=== PATIENT | female | born 1985 | race Caucasian/White ===

== ENCOUNTER 2022-04-21 18:11 | Emergency (ER) | payer MEDICAID, SELFPAY ==
[2022-04-21 18:25] VITALS: BP 125/79; PULSE 61; RESP 18; TEMP 36.3; O2SAT 98; BMI 43.4
--- OUTSIDE RECORDS SUMMARY | 2022-04-21 20:21 | XMS_ITS | Encounter Summary ---
:1985 Author Organization [place] Address [address] [facility] [place] [address] Care Team Providers Name Role Phone Joce Justin MD Primary Care Provider Reason for Visit Auth/Cert Specialty Diagnoses / Procedures Referred By Contact Refer red To Contact Surgery Diagnoses right carpal tunnel syndrome Sh Periop Services Procedures RELEASE CARPAL TUNNEL [address], [address] [place] [address] Phone: Referral ID Status Reason Start Date Expiration Date Visits Requ ested Visits Authorized [id number] 1 1 Encounter Details Date Type Department Care Team Description 09/17/2017 Anesthesia Event [facility] Gideon Franco [place] PeriGuy MD [address], [address] [address] [place] [address] [phone] (Wo rk) Anesthesia Record Procedure Summary Procedure Name Responsible Anesthesia Start Anesthesia Stop Time Anesthesiologist Time OPEN RIGHT CARPAL Gideon Franco MD 09/17/17 1336 1423 TUNNEL RELEASE (Right: Wrist) Events Date Time Event Comment 09/17/2017 1159 1336 An Start 1336 An Start Data 1339 An Induction 1341 An LMA 1342 LMA Removed 1342 Quick Note LMA supreme inse rted with a good seal, patient started to hiccu p and gastric contents came through the gastric port on LMA, LMA immediately removed. Dr. Franco DL'd patient with lai 2, cords suctioned and we re clear. RSI induction with cricoid pressure and glidescope 3 used with grade [address] aced with ease. Suctioned down ETT tube and there w as no gastric contents down the ETT. 1344 An Intubation 1346 AN START SEVO 1353 An Tourn Inflated 1353 AN INCISION 1406 AN END SEVO 1414 AN Extubation 1417 an stop data 1423 An Stop Electronically s igned by Kenyetta Ram on September 17, 2017 2 :23 PM Name Total dexamethasone 4mg/mL 4 mg fentaNYL (SUBLIMAZE) injection 100 mcg lidocaine 2% 60 mg midazolam 1mg/mL 2 mg ondansetron 2mg/mL 4 mg propofol (DIPRIVAN) injection 10 mg/mL vial 300 mg propofol infusion (mcg/kg/min) 250.92 mg ceFAZolin (ANCEF) intermittent infusion 3 g (pre-mix) 3 g succinylcholine 20 mg/mL 100 mg LR 600 mL Agents Name NO HELIOX O2 N2O Air Exp Sevoflurane Exp Isoflurane Exp Desflurane Exp N2O O2 Delivery Device Ins Sevoflurane Ins Isoflurane Ins Desflurane O2 Auxiliary Blood No blood administrations on file. Lines, Drains, and Airways Type Details Placement Removal Peripheral IV 09/17/17; 1339; 20 G; 09/17/17 1339 by Left; Hand; Metacarpal Kenyetta Ram vein (top of hand); VIKI Strickland DEDICATED LOCAL TRUCK DRIVER Alcohol; Injectable; Tolerated well Incision/Surgical Site 09/17/17; 1402; Right; 09/17/17 1402 by Wrist Anna Mckeon RN Retired Non-Surgical 09/17/17; 1341; Not 09/17/17 1341 by 1342 by Airway attempted ([place] Kenyetta Ram Theresa Airway); Intravenous; VIKI Strickland CRNA, AP RN DEDICATED LOCAL TRUCK DRIVER Easy; 4; mm; laryngeal mask airway; midline; SRNA; ab RETIRED ETT 09/17/17; 1344; Mask 09/17/17 1344 by 09/17/17 1 414 by Ventilation: Not Kenyetta Ram T heresa attempted (RSI); Ease VIKI Strickland CRNA, AP RN DEDICATED LOCAL TRUCK DRIVER of Intubation: Easy; Airway Size: 7; Cuffed; Oral; Blade Type: Glidescope; Blade Size: 3; Place by: izaiah; Insertion Attempts: 1; Secured at (cm)to lip: 21 cm; Breath Sounds: Equal, clear and bilateral; End Tidal CO2: Present; Dentition: Intact, Unchanged; Grade View of Cords: 1; Airway Adjuncts: [place] scope Gastric Tube 09/17/17; 1345; 09/17/17 1345 by 09/17/17 1346 b y Decompression; 18 fr; Yo, Kenyetta Sundstr om, Kenyetta Aspiration of gastric Marco A, KIT ASSEMBLER DEDICATED LOCAL TRUCK DRIVER Marco A, AP RN DEDICATED LOCAL TRUCK DRIVER content documented in this encounter Social History Tobacco Use Types Packs/Day Years Used Date Smoking Tobacco: Some Days Cigarettes 0.5 Smokeless Tobacco: Never Alcohol Use Standard Drinks/Week Comments Yes 0 (1 standard drink = 0.6 oz pure alcoho l) occasionally Sex Assigned at Date Recorded Not on file documented as of this encounter OR Notes Anesthesia Postprocedure Evaluation - Gideon Franco MD - 09/17/2017 3:21 PM CDT Patient: Phuong Hood Procedure(s): OPEN RIGHT CARPAL TUNNEL RELEASE - Wound Class: I-Clean Diagnosis:right carpal tunnel syndrome Diagnosis Additional Information: No value filed. Anesthesia Type: General, LMA Note: Anesthesia Post Evaluation Patient location during evaluation: PACU Patient participation: Able to fully participate in evaluation Level of consciousness: awake Pain management: adequate Airway patency: patent Cardiovascular status: acceptable Respiratory status: acceptable Hydration status: acceptable PONV: none Anesthetic complications: None Last vitals: Vitals: 09/17/17 1445 09/17/17 1500 09/17/17 1515 BP: 156/64 141/70 149/79 Resp: 15 21 15 Temp: 36.8 ??C (98.2 ??F) 36.6 ??C (97.9 ??F) SpO2: 99% 99% 93% Electronically Signed By: Gideon Franco MD September 17, 2017 3:21 PM Anesthesia Preprocedure Evaluation - Gideon Franco MD - 09/17/2017 11:13 AM CDT Anesthesia Evaluation . Pt has had prior anesthetic. No history of anesthetic complications ROS/MED HX ENT/Pulmonary: (+), recent URI resolved 6 months ago has used albuterol inhaler occ. since: . . Neurologic: Cardiovascular: METS/Exercise Tolerance: Hematologic: Musculoskeletal: GI/Hepatic: Renal/Genitourinary: Endo: (+) Obesity (BMI 42), . Psychiatric: (+) psychiatric history (PTSD;) anxiety and depression Infectious Disease: Malignancy: Other: Physical Exam Normal systems: cardiovascular and pulmonary Airway Mallampati: III TM distance: >3 FB Neck ROM: full Dental Cardiovascular Pulmonary Anesthesia Plan History & Physical Review History and physical reviewed and following examination; no interval change. ASA Status: 3 . NPO Status: > 8 hours Plan for General and LMA with Intravenous and Propofol induction. Maintenance will be Inhalation. PONV prophylaxis: Ondansetron (or other 5HT-3) and Dexamethasone or Solumedrol LMA with gastric port Patient refuses any other anesthetic alternative and demands general anesthesia Postoperative Care Postoperative pain management: Oral pain medications. Consents Anesthetic plan, risks, benefits and alternatives discussed with: Patient.. DPreop diagnosis: right carpal tunnel syndrome Procedure(s): RELEASE CARPAL TUNNEL Allergies Allergen Reactions ??? Estradiol Other (See Comments) ALLERGY TO ORTH TRI CYCLEN - REACTION: ??? Hydrocodone Nausea ??? Ciprofloxacin Rash No current facility-administered medications on file prior to encounter. No current outpatient prescriptions on file prior to encounter. No results found for: HGB, INR, POTASSIUM . documented in this encounter Miscellaneous Notes Anesthesia Care Transfer Note - Kenyetta Ram APRN CRNA - 09/17/2017 2:22 PM CDT Patient: Phuong Hood Procedure(s): OPEN RIGHT CARPAL TUNNEL RELEASE - Wound Class: I-Clean Diagnosis: right carpal tunnel syndrome Diagnosis Additional Information: No value filed. Anesthesia Type: General, LMA Note: Airway :Face Mask Patient transferred to:PACU Comments: Neuromuscular blockade reversed after TOF 4/4, spontaneous respirations, adequate tidal volumes, followed commands to voice, oropharynx suctioned with soft flexible catheter, extubated atraumatically, extubated with suction, airway patent after extubation. Oxygen via facemask at 8 liters per minute to PACU. Oxygen tubing connected to wall O2 in PACU, SpO2, NiBP, and EKG monitors and alarms on and functioning, Genaro Hugger warmer connected to patient gown, report on patient's clinical statusgiven to CANDY FORMING MACHINE OPERATOR, RN questions answered. Handoff Report: Identifed the Patient, Identified the Reponsible Provider, Reviewed the pertinent medical history, Discussed the surgical course, Reviewed Intra-OP anesthesia mangement and issues during anesthesia, Set expectations for post-procedure period andAllowed opportunity for questions and acknowledgement of understanding Vitals: (Last set prior to Anesthesia Care Transfer) DEDICATED LOCAL TRUCK DRIVER VITALS 09/17/2017 1347 - 09/17/2017 1422 09/17/2017 Pulse: 86 SpO2: 100 % Resp Rate (observed): 14 Electronically Signed By: Kenyetta Ram APRN CRNA September 17, 2017 2:22 PM documented in this encounter Plan of Treatment Not on filedocumented as of this encounter Visit Diagnoses Not on filedocumented in this encounter Administered Medications Inactive Administered Medications - up to 3 most recent administrations Medication Order MAR Action Action Date Dose Rate Site ceFAZolin (ANCEF) intermittent Given 09/17/2017 1:47 PM CDT 3 g infusion 3 g (pre-mix) Routine, 3 g, Intravenous, PRE-OP/PRE-PROCEDURE, Starting on Stacey 09/17/17 at 1105, For 1 dose, USE 3 gram dose pre-op (Patient weight > or = 80 Kg). Discontinue the 1 or 2 gram pre-procedure dose, Indications: Perioperative Pharmacoprophylaxis, Pre-procedure dexamethasone (DECADRON) injection Given 09/17/2017 1:47 PM CDT 4 mg PRN, Administer over 1 Minutes, Starting on Stacey 09/17/17 at 1347, Anesthesia Intra-op fentaNYL (PF) (SUBLIMAZE) injection Given 09/17/2017 2:15 PM CDT 25 mcg PRN, moderate to severe pain, Administer over 3-5 Minutes, Starting on Stacey 09/17/17 at 1339, Anesthesia Intra-op Given 09/17/2017 2:08 PM CDT 25 mcg Given 09/17/2017 1:39 PM CDT 50 mcg lactated ringers infusion New Bag 09/17/2017 1:39 PM CDT Intravenous, CONTINUOUS PRN, Anesthesia Intra-op, Starting on Stacey 09/17/17 at 1339, Until Stacey 09/17/17 at 1423 lidocaine injection 2% (MDV) Given 09/17/2017 1:39 PM CDT 60 mg PRN, Starting on Stacey 09/17/17 at 1339, Anesthesia Intra-op midazolam (VERSED) injection Given 09/17/2017 1:39 PM CDT 2 mg Administer over 2 Minutes, PRN, anxiety, Starting on Stacey 09/17/17 at 1339, Anesthesia Intra-op ondansetron (ZOFRAN) injection Given 09/17/2017 1:47 PM CDT 4 mg PRN, nausea, vomiting, Administer over 2-5 Minutes, Starting on Stacey 09/17/17 at 1347, Anesthesia Intra-op propofol (DIPRIVAN) infusion Rate/Dose 09/17/2017 1:53 25 mcg/kg/min 18.5 mL/hr Intravenous, CONTINUOUS PRN, Change PM CDT Starting on Stacey 09/17/17 at 1339, Anesthesia Intra-op Rate/Dose Change 09/17/2017 1:47 PM CDT 50 mcg/kg/min 36.9 mL/hr New Bag 09/17/2017 1:39 PM CDT 180 mcg/kg/min 132.8 mL/hr propofol (DIPRIVAN) injection 10 mg/mL v ial Given 09/17/2017 1:39 PM CDT 300 mg PRN, Starting on Stacey 09/17/17 at 1339, Anesthesia Intra-op succinylcholine (ANECTINE) injection Given 09/17/2017 1:43 PM CDT 100 mg PRN, Starting on Stacey 09/17/17 at 1343, Anesthesia Intra-op documented in this encounter Care Teams Machine Feeder Relationship Specialty Start Date End Date Joce Justin MD PCP - General Family Practice 09/08/17 [facility] [address] [place] [address] documented as of this encounter
--- OUTSIDE RECORDS SUMMARY | 2022-04-21 20:21 | XMS_ITS | Encounter Summary ---
:1985 Author Organization [place] Address [facility] [place] [address] Care Team Providers Name Role Phone Jared Justin MD Primary Care Provider Reason for Visit Auth/Cert Specialty Diagnoses / Procedures Referred By Contact Refer red To Contact Surgery Diagnoses right carpal tunnel syndrome Sh Periop Services Procedures RELEASE CARPAL TUNNEL [address] [place] [address] Phone: Referral ID Status Reason Start Date Expiration Date Visits Requ ested Visits Authorized [id number] 1 1 Encounter Details Date Type Department Care Team Description 09/17/2017 Surgery [facility] Jared Ponce MD OPEN RIGHT CARPAL TUNNEL [place] [facility] RELEASE Services ORTHOPEDICS [address] [facility] [address] [place] [address] [place] [address] [phone] Surgery Details Date/Time Status Location OR Service Patient Case Case Traum a Class Class Type Case? 09/17/17 2:03 Posted Z SH SD SD 20 Orthopedics Same Day PM Surgery Panel 1 Procedure LRB Anes Op Region Wound Class Commen ts OPEN RIGHT CARPAL TUNNEL Right Winter Block Wrist I-Clean OPEN RIGHT CARPAL RELEASE TUNNEL RELEASE Surgeon Surgeon Role Service Panel Jared Ponce MD Primary Orthopedics 1 documented in this encounter Social History Tobacco Use Types Packs/Day Years Used Date Smoking Tobacco: Some Days Cigarettes 0.5 Smokeless Tobacco: Never Alcohol Use Standard Drinks/Week Comments Yes 0 (1 standard drink = 0.6 oz pure alcoho l) occasionally Sex Assigned at Date Recorded Not on file documented as of this encounter Last Filed Vital Signs Vital Sign Reading Time Taken Comments Blood Pressure 123/76 09/17/2017 4:39 PM CDT Pulse - - Temperature 36.6 ??C (97.9 ??F) 09/17/2017 3:45 PM CDT Respiratory Rate 16 09/17/2017 4:39 PM CDT Oxygen Saturation 93% 09/17/2017 3:45 PM CDT Inhaled Oxygen Concentration - - Weight 123 kg (271 lb 1.6 oz) 09/17/2017 11:05 AM CDT Height 160 cm (5' 3) 09/17/2017 11:05 AM CDT Body Mass Index 48.02 09/17/2017 11:05 AM CDT documented in this encounter Discharge Instructions Discharge InstructionsCarolina Bender RN - 09/17/2017 3:06 PM CDT Today you received Toradol, an antiinflammatory medication similar to Ibuprofen. You should not takeother antiinflammatory medication, such as Ibuprofen, Motrin, Advil, Aleve, Naprosyn, etc, until 9pm. Same Day Surgery Discharge Instructions for Sedation and General Anesthesia ?? It's not unusual to feel dizzy, light-headed or faint for up to 24 hours after surgery or while taking pain medication. If you have these symptoms: sit for a few minutes before standing and have someone assist you when you get up to walk or use the bathroom. ?? You should rest and relax for the next 24 hours. We recommend you make arrangements to have an adult stay with you for at least 24 hours after your discharge. Avoid hazardous and strenuous activity. ?? DO NOT DRIVE any vehicle or operate mechanical equipment for 24 hours following the end of your surgery. Even though you may feel normal, your reactions may be affected by the medication you have received. ?? Do not drink alcoholic beverages for 24 hours following surgery. ?? Slowly progress to your regular diet as you feel able. It's not unusual to feel nauseated and/or vomit after receiving anesthesia. If you develop these symptoms, drink clear liquids (apple juice, bang coy, broth, 7-up, etc. ) until you feel better. If your nausea and vomiting persists for 24 hours, please notify your surgeon. ?? All narcotic pain medications, along with inactivity and anesthesia, can cause constipation. Drinking plenty of liquids and increasing fiber intake will help. ?? For any questions of a medical nature, call your surgeon. ?? Do not make important decisions for 24 hours. ?? If you had general anesthesia, you may have a sore throat for a couple of days related to the breathing tube used during surgery. You may use Cepacol lozenges to help with this discomfort. If it worsens or if you develop a fever, contact your surgeon. ?? If you feel your pain is not well managed with the pain medications prescribed by your surgeon, please contact your surgeon's office to let them know so they can address your concerns. Reasons to contact your surgeon: 1. Signs of possible infection: Check your incision daily for redness, swelling, warmth, red streaksor foul drainage. 2. Elevated temperature. 3. Pain not controlled with pain medication and/or rest. 4. Uncontrolled nausea or vomiting. 5. Any questions or concerns. If you have questions or concerns about your procedure, call Dr. Ponce at [phone] documented in this encounter Medications at Time of Discharge Medication Sig Dispensed Refills Start Date End Date albuterol (PROAIR Inhale 2 puffs into 0 HFA/PROVENTIL HFA/VENTOLIN the lungs every 4 HFA) 108 (90 BASE) MCG/ACT hours as needed for Inhaler shortness of breath / dyspnea or wheezing BusPIRone HCl (BUSPAR PO) Take 7.5 mg by mouth 0 2 times daily HYDROcodone-acetaminophen Take 1-2 tablets by 10 tablet 0 0 09/17/2017 (NORCO) 5-325 MG per mouth every 4 hours tabletIndications: Carpal as needed for pain tunnel syndrome of right maximum 10 tablet(s) wrist per day Levothyroxine Sodium Take 75 mcg by mouth 0 (SYNTHROID PO) daily Omeprazole (PRILOSEC PO) Take 20 mg by mouth 0 daily oxyCODONE-acetaminophen Take 1-2 tablets by 10 tablet 0 (PERCOCET) 5-325 MG per mouth every 6 hours tabletIndications: Carpal as needed for severe tunnel syndrome of right pain maximum 6 wrist tablet(s) per day venlafaxine (EFFEXOR-XR) Take 225 mg by mouth 0 150 MG 24 hr capsule daily documented as of this encounter H&P Notes Jared Ponce MD - 09/17/2017 1:31 PM CDT This H&P has been reviewed and there are no clinically significant changes in the patient? s condition. The Patient is approved for surgery. documented in this encounter Nursing Notes Carolina Bender RN - 09/17/2017 3:59 PM CDT PNDS met, po per I&O sheet. Pt dressed, up in recliner and transported to Phase 2. Carolina Bender RN - 09/17/2017 3:37 PM CDT Patient states she is allergic to norco, wants percocet documented in this encounter Miscellaneous Notes Brief Op Note - Jared Ponce MD - 09/17/2017 2:07 PM CDT [facility] Brief Operative Note Pre-operative diagnosis: Right carpal tunnel syndrome Post-operative diagnosis Right carpal tunnel syndrome Procedure: Procedure(s): OPEN RIGHT CARPAL TUNNEL RELEASE - Wound Class: I-Clean Surgeon(s): Surgeon(s) and Role: * Jared Ponce MD - Primary Estimated blood loss: * No values recorded between 09/17/2017 1:53 PM and 09/17/2017 2:07 PM * Specimens: * No specimens in log * Findings: Tight transverse ligament. Op Note - Jared Ponce MD - 09/17/2017 2:06 PM CDT Procedure Date: 09/17/2017 DATE OF SURGERY: 09/17/2017 PREOPERATIVE DIAGNOSIS: Chronic right carpal tunnel syndrome. POSTOPERATIVE DIAGNOSIS: Chronic right carpal tunnel syndrome. OPERATIVE PROCEDURE: Open right carpal tunnel release. SURGEON: Jared Ponce MD. STATE EPIDEMIOLOGIST: SARWAT Teixeira. ANESTHESIA: General. OPERATIVE PROCEDURE: I identified the patient. She was brought into the operating room and placed onthe OR table where general anesthesia was induced by the anesthesiologist. She received preoperativeIV antibiotics. A well-padded tourniquet was then applied to the right upper extremity. The arm was prepped and draped in the standard fashion. It was exsanguinated by Esmarch and tourniquet elevated to 300 mmHg. A standard 1-inch longitudinal incision was made in the right palm in line with the radial border ofthe fourth ray. This was taken down through the underlying palmar fascia so as to expose the transverse carpal ligament. A curved Reid scissors was then used to free soft tissue off the proximal ligament and distal antebrachial fascia to further improve exposure. A curved mosquito was then placed under the distal portion of the transverse ligament. The ligament was then incised in a distal to proximal fashion with a 15 blade. The most proximal ligament and distal antebrachial fascia were then released under direct vision with a curved Reid scissors. A moistened finger introduced into the wound confirmed that the nerve had been completely decompressed. The nerve itself, including the motor branch, was unharmed by the procedure. No abnormal contentsin the floor of the carpal tunnel. The wound was then irrigated with saline. Skin was closed with interrupted 4-0 nylon. The wound was infiltrated with 0.5% Marcaine for postoperative analgesia. A sterile bulky dressing was then applied along with a volar plaster splint. The tourniquet was deflated, and the patient was taken to the recovery room having tolerated the surgery well. JARED POCNE MD MT: AV Name: HOLLAND GARZA MRN: [id number] Account: [id number] : 1985 Procedure Date: 09/17/2017 Document: [id number] cc: Jared Ponce MD documented in this encounter Plan of Treatment Not on filedocumented as of this encounter Procedures Procedure Name Priority Date/Time Associated Diagnosis Comme nts RELEASE, CARPAL TUNNEL 09/17/2017 1:16 PM CDT Right ca rpal tunnel syndrome documented in this encounter Visit Diagnoses Not on filedocumented in this encounter Administered Medications Inactive Administered Medications - up to 3 most recent administrations Medication Order MAR Action Action Date Dose Rate Site bupivacaine (MARCAINE) Given 09/17/2017 2:09 PM 10 mLs Operative injection 0.5% CDT Site/Surgical S ite PRN, Starting on Stacey 09/17/17 at 1409, Intra-procedure fentaNYL (PF) (SUBLIMAZE) injection 25-5 0 mcg Given 09/17/2017 2:43 PM CDT 50 mcg 25-50 mcg, Intravenous, EVERY 5 MIN PRN, other, acute pain while in PACU., Starting on Stacey 09/17/17 at 1423, MAX cumulative dose = 250 mcg. Use Fentanyl initially, as a short acting agent for acute pain control. If insufficient, or a longer acting agent is needed, begin Morphine or Hydromorphone if ordered. For ordered doses up to 100 mcg give IV Push undiluted over a minimum of 3-5 minutes., PACU Given 09/17/2017 2:27 PM CDT 50 mcg fentaNYL (PF) (SUBLIMAZE) injection 25-5 0 mcg 25-50 mcg, Intravenous, EVERY 15 MIN PRN, other, acute pain while in Phase II, Starting on Stacey 09/17/17 at 1423, Indicat ions: Sedated State, MAX cumulative dose = 250 mcg. Use Fentanyl initially, as a sh ort acting agent for acute pain control. If insufficient, or a longer acting agent i s needed, begin Morphine or Hydromorphone if ordered. For ordered doses up to 100 mcg give IV Push undiluted over a minimum of 3-5 minutes., Phase ll HYDROmorphone (PF) (DILAUDID) injection Given 09/17/2017 3:28 PM CDT 0.5 mg 0.3-0.5 mg 0.3-0.5 mg, Intravenous, EVERY 10 MIN PRN, other, acute pain.?May administer if Respiratory Rate is greater than 10, Starting on Stacey 09/17/17 at 1423, If fentanyl is also ordered, use HYDROmorphone if pain control insufficient with fentanyl or a longer acting agent is needed. Max cumulative dose = 2 mg For ordered doses up to 4 mg give IV Push undiluted. Administer each 2mg over 2-5 minutes., PACU/Phase II ketorolac (TORADOL) injection 30 mg Given 09/17/2017 3:02 PM CDT 30 mg 30 mg, Intravenous, ONCE, On Stacey 18 at 1430, For 1 dose, IF celecoxib was given pre-operatively, start ketorolac 12 hours after celecoxib given No ketorolac if patient is greater than 65 years old. May give only if patient did not receive a dose intraoperatively. Can cause pain on injection. Administer through a running maintenance fluid over 1 minute followed by a flush. If patient complains of pain on injection, may dilute 15-30 mg in 5 mL and push over 1 to 2 minutes. , PACU/Phase II lactated ringers infusion New Bag 09/17/2017 3:32 PM CDT 100 mL/hr at 100 mL/hr, Intravenous, CONTINUOUS, Continue until IV catheter is weaned, PACU/Phase II, Starting on Stacey 09/17/17 at 1430, Until Stacey 09/17/17 at 1845 meperidine (DEMEROL) injection 12.5 mg 12.5 mg, Intravenous, EVERY 15 MIN PRN, post anesthesia shivering, Starting on Stacey 09/17/17 at 1423, For 2 doses, Give IV Pu sh undiluted. 10-40 mg over 2-3 minutes, up to 125 mg over 3-15 minutes, PACU/Phase II midazolam (VERSED) injection 0.5-1 mg 0.5-1 mg, Intravenous, EVERY 5 MIN PRN, muscle spasms, sedation, Starting on Stacey 09/17/17 at 1423, Max cumulative dose = 2 mg For ordered doses up to 2.5 mg give IV Push slowly titrated over a minimum of 2 minutes. Dilute each 1mg in 4mL of NS., PACU naloxone (NARCAN) injection 0.1-0.4 mg 0.1-0.4 mg, Intravenous, EVERY 2 MIN PRN , opioid reversal, Starting on Stacey 09/17/17 at 1423, For 24 hours, For apnea or imminent respirato ry arrest: give 0.4 mg IV undiluted Q 2 minutes PRN until desired degree of reversal is obtained, stop opioid and notify provider. Continue monitoring until dischar ge are criteria met for a minimum of 2 hours. For severe sedation, decrease in respiratory depth, quality or Respiratory Rate greater than 8: give 0. 1 mg IV Q 2 minutes x 3 doses, stop opioid and notify provider. Try to minimize reversal of analg esia especially in end-of-life patients. Continue monitorin g until discharge criteria are met for a minimum of 2 hours. For ordered doses up to 2mg give IVP. Give each 0.4mg over 15 seconds in emergency situations. For non -emergent situations further dilute in 9mL of NS to facilitate titration of response., PACU/Phase II ondansetron (ZOFRAN) injection 4 mg 4 mg, Intravenous, EVERY 30 MIN PRN, donna sea, vomiting, Administer over 2-5 Minutes, Starting on Stacey 09/17/17 at 1423, For 2 d oses, MAX total dose = 8 mg, including OR dosing. This is step 1 of nausea and vomiting manageme nt. If not resolved in 15 minutes, then go to step 2 [prochlorpera zine (COMPAZINE) if ordered]. Irritant. For ordered doses up to 4 mg, give IV Push u ndiluted over 2-5 minutes., PACU/Phase II ondansetron (ZOFRAN-ODT) ODT tab 4 mg 4 mg, Oral, EVERY 30 MIN PRN, nausea, vo miting, Starting on Stacey 09/17/17 at 1423, For 2 doses, MAX total dose = 8 mg, incl uding OR dosing. This is step 1 of nausea and vomiting management. If not resolved in 15 minutes , then go to step 2 [prochlorperazine (COMPAZINE) if ordered ]. With dry hands, peel back foil backing and gently remove tablet; do not push oral disintegrat ing tablet through foil backing; administer immediately on tongu e and oral disintegrating tablet dissolves in seconds; then swallow with saliva; liquid not requi red., PACU/Phase II ORAL Pain Medications - may administer a s ordered by surgeon for take home use CONTINUOUS PRN, Starting on Stacey 09/17/17 at 1423, Until Stacey 09/17/17 at 1845, May administer oral pain medications as ordered by surgeon for take home use. Discontinue IV pain medication prior to administration of oral pain medication., PACU/Phase II oxyCODONE-acetaminophen (PERCOCET) 5-325 MG Given 08/28 4:28 PM CDT 1 tablet per tablet 1 tablet 1 tablet, Oral, EVERY 4 HOURS PRN, moderate to severe pain, Starting on Stacey 09/17/17 at 1628, Maximum acetaminophen dose from all sources= 75 mg/kg/day not to exceed 4 grams, PACU physostigmine salicylate (ANTILIRIUM) in jection 1.2 mg 1.2 mg, Intravenous, ONCE PRN, for non-specific revers al of ICT PROGRAMMER anticholinergic side effects, Starting on Stacey 09/17/17 at 1423, For 1 dose, Infuse no faster than 1 mg per minute. Rapid administration may cause bradycardia, excessive salivation and seizures., PACU/Phase II documented in this encounter Active and Recently Administered Medications Times are shown in CDT. Scheduled Medication Order 09/15/2017 09/16/2017 09/17/2017 ceFAZolin (ANCEF) intermittent infusion 3 g (pre-mix) (COMPLETED ) 1347 (Given - Provider: Kenyetta Ram APRN CRNA) 3 g, Intravenous, PRE-OP/PRE-PROCEDURE, Starting Stacey 09/17/17 at 1105, For 1 dose, USE 3 gram dose pre-op (Patient weight > or = 80 Kg). Discontinue the 1 or 2 gram pre-procedure dose, Indications: Perioperative Pharmacoprophylaxis, Pre-procedure ketorolac (TORADOL) injection 30 mg (COMPLETED) 1502 (Given - Provider: Carolina Bender RN) 30 mg, Intravenous, ONCE, On Stacey 09/17/17 at 1430, For 1 dose, IF celecoxib was given pre-operatively, start ketorolac 12 hours after celecoxib given No ketorolac if patient is greater than 65 years old. May give only if patient did not receiv e a dose intraoperatively. Can cause pain on injection. Administer through a running maintenance fluid over 1 minute followed by a flush. If patient complains of pain on injection, may dilute 15-30 mg i n 5 mL and push over 1 to 2 minutes. , PACU/Phase II Continuous Medication Order 09/15/2017 09/16/2017 09/17/2017 lactated ringers infusion 1532 ( New Bag - Provider: Adriana Monroe RN) at 100 mL/hr, Intravenous, CONTINUOUS, C ontinue until IV catheter is weaned, PACU/Phase II, Starting Stacey 09/17/17 at 1430, Until Stacey 09/17/17 at 1845 PRN Medication Order 09/15/2017 09/16/2017 09/17/2017 bupivacaine (MARCAINE) injection 0.5% (CANCELED) 1409 (Given - Provider: Jared Ponce MD) PRN, Starting Stacey 09/17/17 at 1409, Intra-procedure fentaNYL (PF) (SUBLIMAZE) injection 25-50 mcg 1427 (Given - Provider: Carolina Bender, YAMILE)1443 (Given - Provider: Carolina Bender RN) 25-50 mcg, Intravenous, EVERY 5 MIN PRN, Starting Stacey 09/17/17 at 1423, other, acute pain while in PACU., MAX cumulative dose = 250 mcg. Use Fentanyl initially, as a short acting agent for acute pain con trol. If insufficient, or a longer actin g agent is needed, begin Morphine or Hydromorphone if ordered. For ordered doses up to 100 mcg give IV Push undiluted over a minimum of 3-5 minutes., PACU fentaNYL (PF) (SUBLIMAZE) injection 25-50 mcg 25-50 mcg, Intravenous, EVERY 15 MIN PRN , Starting Stacey 09/17/17 at 1423, other, acute pain while in Phase II, MAX cumulative dose = 250 mcg. Use Fentanyl initially, as a short acting agent for acute pain control. If insufficient, or a longer a cting agent is needed, begin Morphine or Hydromorphone if ordered. For ordered doses up to 100 mcg give IV Push undiluted over a minimum of 3-5 minutes., Phase ll HYDROmorphone (PF) (DILAUDID) injection 0.3-0.5 mg 1528 (Given - Provider: Adriana Monroe RN) 0.3-0.5 mg, Intravenous, EVERY 10 MIN NJ N, Starting Stacey 09/17/17 at 1423, Until Stacey 09/17/17 at 1845, other, acute pain.?May administer if Respiratory Rate is greater than 10, PACU/Phase II, If fentany l is also ordered, use HYDROmorphone if pain control insufficient with fentanyl or a longer acting agent is needed. Max cumulative dose = 2 mg For ordered doses up to 4 mg give IV Push undiluted. Administer each 2mg over 2-5 minutes. meperidine (DEMEROL) injection 12.5 mg 12.5 mg, Intravenous, EVERY 15 MIN PRN, 2 doses, Starting Stacey 318 at 1423, Until Stacey 3/18 at 1845, post anesthesia shivering, PACU/Phase II, Give IV Push undiluted. 10-40 mg over 2-3 minutes, up to 125 mg over 3-15 minutes midazolam (VERSED) injection 0.5-1 mg 0.5-1 mg, Intravenous, EVERY 5 MIN PRN, Starting Stacey 318 at 1423, muscle spasms, sedation, Max cumulative dose = 2 mg For ordered doses up to 2.5 mg give IV Push slowly titrated over a minimum of 2 minutes. Dilute each 1mg in 4mL of NS., PACU naloxone (NARCAN) injection 0.1-0.4 mg 0.1-0.4 mg, Intravenous, EVERY 2 MIN PRN , opioid reversal, Starting Stacey 09/17/17 at 1423, For 24 hours, For apnea or imminent respiratory arrest: give 0.4 mg IV undiluted Q 2 minutes PRN until desired de gree of reversal is obtained, stop opioi d and notify provider. Continue monitoring until discharge are criteria met for a minimum of 2 hours. For severe sedation, decrease in respiratory depth, quality or Respiratory Rate greater than 8: give 0.1 mg IV Q 2 minutes x 3 doses, stop opioid and notify provider. Try to minimize reversal of analgesia especially in end-of-life patients. Continue monitoring u ntil discharge criteria are met for a mi nimum of 2 hours. For ordered doses up to 2mg give IVP. Give each 0.4mg over 15 seconds in emergency situations. For non-emergent situations further dilute in 9mL of NS to facilitate titration of response., PACU/Phase II ondansetron (ZOFRAN) injection 4 mg(Linked Group 1) 4 mg, Intravenous, EVERY 30 MIN PRN, donna sea, vomiting, Administer over 2-5 Minutes, Starting Stacey 318 at 1423, For 2 doses, MAX total dose = 8 mg, including OR dosing. This is step 1 of nausea and vo miting management. If not resolved in 15 minutes, then go to step 2 [prochlorperazine (COMPAZINE) if ordered]. Irritant. For ordered doses up to 4 mg, give IV Push undiluted over 2-5 minutes., PACU/Phase II ondansetron (ZOFRAN-ODT) ODT tab 4 mg(Linked Group 1) 4 mg, Oral, EVERY 30 MIN PRN, nausea, vo miting, Starting Stacey 09/17/17 at 1423, For 2 doses, MAX total dose = 8 mg, including OR dosing. This is step 1 of nausea and vomiting management. If not resolved i n 15 minutes, then go to step 2 [prochlo rperazine (COMPAZINE) if ordered]. With dry hands, peel back foil backing and gently remove tablet; do not push oral disintegrating tablet through foil backing; a dminister immediately on tongue and oral disintegrating tablet dissolves in seconds; then swallow with saliva; liquid not required., PACU/Phase II ORAL Pain Medications - may administer as ordered by surgeon for take home use CONTINUOUS PRN, Starting Stacey 09/17/17 at 1423, Until Stacey 09/17/17 at 1845, May administer oral pain medications as ordered by surgeon for take home use. Discontinue IV pain medication prior to administration of oral pain medication., PACU/Phase II oxyCODONE-acetaminophen (PERCOCET) 5-325 MG per tablet 1 tablet 1628 (Given - Provider: Licha Lester RN) 1 tablet, Oral, EVERY 4 HOURS PRN, moder ate to severe pain, Starting Stacey 09/17/17 at 1628, Maximum acetaminophen dose from all sources= 75 mg/kg/day not to exceed 4 grams, PACU physostigmine salicylate (ANTILIRIUM) injection 1.2 mg 1.2 mg, Intravenous, ONCE PRN, for non-s pecific reversal of ICT PROGRAMMER anticholinergic side effects, Starting Stacey 09/17/17 at 1423, For 1 dose, Infuse no faster than 1 mg per minute. Rapid administration may ca use bradycardia, excessive salivation and seizures., PACU/Phase II Linked Groups Order Group 1: ondansetron (ZOFRAN-ODT) ODT tab 4 mgJump to med 4 mg, Oral, EVERY 30 MIN PRN, nausea, vo miting, Starting Stacey 09/17/17 at 1423, For 2 doses
MAX total dose = 8 mg, including OR dosing. This is step 1 of nausea and vomiting management. If not resolved in 15 minutes, the n go to step 2 [prochlorperazine (COMPAZINE) if ordered]. With dry hands, peel back foil backing and gently remove tablet; do not push oral disintegr ating tablet through foil backing; admin ister immediately on tongue and oral disintegrating tablet dissolves in seconds; then swallow with saliva; liquid not required.
PACU/Phase II Or ondansetron (ZOFRAN) injection 4 mgJump to med 4 mg, Intravenous, EVERY 30 MIN PRN, donna sea, vomiting, Administer over 2-5 Minutes, Starting Stacey 09/17/17 at 1423, For 2 doses
MAX total dose = 8 mg, including OR dosing. This is step 1 of nause a and vomiting management. If not resolved in 15 minutes, then go to step 2 [prochlorperazine (COMPAZINE) if ordered]. Irritant. For ordered doses up to 4 mg, give IV Push undiluted over 2-5 minutes.
PACU/Phase II documented in this encounter Care Teams Manager Payment Relationship Specialty Start Date End Date Jared Justin MD PCP - General Family Practice 09/08/[address] [address] documented as of this encounter
--- OUTSIDE RECORDS SUMMARY | 2022-04-21 20:21 | XMS_ITS | Clinical Summary ---
:1985 Author Organization [place] Address [address] [place] [address] Care Team Providers Name Role Phone Joce Justin MD Primary Care Provider Allergies Active Allergy Reactions Severity Noted Date Comments Ciprofloxacin Rash Low 09/16/2017 Estradiol Other (See Comments) 09/16/2017 ALLERGY TO ORTH TRI CYCLEN - REACTION:PREGNA NCY Hydrocodone Nausea 09/16/2017 Medications Medication Sig Dispensed Refills Start Date End Date Status albuterol (PROAIR Inhale 2 puffs 0 Active HFA/PROVENTIL into the lungs HFA/VENTOLIN HFA) 108 every 4 hours as (90 BASE) MCG/ACT needed for Inhaler shortness of breath / dyspnea or wheezing Levothyroxine Sodium Take 75 mcg by 0 Active (SYNTHROID PO) mouth daily Omeprazole (PRILOSEC Take 20 mg by 0 Active PO) mouth daily BusPIRone HCl (BUSPAR Take 7.5 mg by 0 Active PO) mouth 2 times daily venlafaxine Take 225 mg by 0 Act bernice (EFFEXOR-XR) 150 MG 24 mouth daily hr capsule HYDROcodone-acetaminop Take 1-2 tablets 10 tablet 0 09/17/2017 Active hen (NORCO) 5-325 MG by mouth every 4 per tabletIndications: hours as needed Carpal tunnel syndrome for pain maximum of right wrist 10 tablet(s) per day oxyCODONE-acetaminophe Take 1-2 tablets 10 tablet 0 09/17/2017 Active n (PERCOCET) 5-325 MG by mouth every 6 per tabletIndications: hours as needed Carpal tunnel syndrome for severe pain of right wrist maximum 6 tablet(s) per day Social History Tobacco Use Types Packs/Day Years Used Date Smoking Tobacco: Some Days Cigarettes 0.5 Smokeless Tobacco: Never Alcohol Use Standard Drinks/Week Comments Yes 0 (1 standard drink = 0.6 oz pure alcoho l) occasionally Sex Assigned at Date Recorded Not on file Last Filed Vital Signs Vital Sign Reading [...] Mass Index 48.02 09/17/2017 11:05 AM CDT Plan of Treatment Not on file Care Teams Train Controller Relationship Specialty Start Date End Date Joce Justin MD PCP - General Family Practice 09/08/17 [facility] [address] [place] [address]
--- OUTSIDE RECORDS SUMMARY | 2022-04-21 20:21 | XMS_ITS | Clinical Summary ---
:1985 Author Organization [employer] [facility] [place] [address] Care Team Providers Name Role Phone Cricket Gonzalez MD Unavailable Hilda York MD Unavailable Mando Anglin MD Unavailable Pricila Borja RN Unavailable Katlyn Castrejon Primary Care Provider [phone] Allergies Active Allergy Reactions Severity Noted Date Comments Ciprofloxacin Rash Low 09/02/2006 vaginal and re ctal rash Estradiol Other - Describe In 09/16/2017 ALLERGY TO ORTH TRI Comment Field CYCLEN - REACTION:PREGNA NCY Hydrocodone Nausea Only 11/09/2015 Norgestimate-Ethinyl 09/02/2006 pregnan cy Estradiol Medications Medication Sig Dispensed Refills Start End Date Status Date levothyroxine Take 1 90 tablet. 3 Activ e (SYNTHROID) 150 mcg Tablet (150 1 tabletIndications: mcg) by Hypothyroidism, mouth unspecified type before breakfast. buPROPion (WELLBUTRIN Take 1 90 tablet. 0 Active XL) 150 mg Tablet (150 2 Extended-Release mg) by tabletIndications: mouth every Anxiety and morning. depression, Adjustment disorder with mixed anxiety and depressed mood fluconazole Take 1 3 Tablet 0 Active (DIFLUCAN) 150 mg Tablet (150 2 tabletIndications: mg) by Intertriginous mouth once candidiasis daily. omeprazole (PRILOSEC) Take 1 90 Capsule 3 Active 20 mg Delayed-Release Capsule (20 2 capsuleIndications: mg) by Gastroesophageal mouth once reflux disease daily without esophagitis before a meal. omeprazole (PRILOSEC) TAKE ONE 180 Capsule 2 Discontinued 20 mg Delayed-Release CAPSULE BY 2 22 (Reorder capsuleIndications: MOUTH TWICE (E-cancel not Gastroesophageal A DAY sen t)) reflux disease BEFORE without esophagitis MEALS Active Problems Patient Care Coordination Note Formatting of this note is different fro m the original. Weight Management - Adult Surgical Progr am Initial Consult 10/01/2017 Dr. Mando Anglin Intake: Wt Readings from Last 1 Encounters: 10/01/17 125.6 kg (276 lb 14.4 oz) lbs Planned Operation Sleeve Gastrectomy Payor: DANIA GOVEA / Plan: DANIA GOVEA / Dodie ct Type: *No Product type* / Est. Pgm Completion: March, Procedure Location: [facility] Co-morbidities: To be determined Orders: Labs Yes Imaging N/A, Abdominal Ultrasound, Uppe r GI X-Ray, EGD and Bone Density Test. Pre-Surgery Program Consults: - Registered Dietitian 6 - Psychological Evaluation: Dr. Shantel Bal or Dr. Nikita Ny Referrals: Yes - Sleep Medicine for CHUCK work-up: - Hematology: - Gastroenterology: - Cardiology: - PT: -Tobacco Cessation: Smoker -Dental: Problem Noted Date Controlled substance agreement signed 06/03/2018 Overview: Jeyson TORRES [facility] Andreia Fay CMA 06/03/2018 11:32 AM Cervical radiculopathy 07/20/2017 Mixed stress and urge urinary incontinence 02/23/2017 H/O renal calculi 02/11/2017 Neck pain, chronic; acutely radiating down the Right a rm 01/30/2017 Chronic bilateral low back pain with right-sided sciat ica 01/30/2017 PTSD (post-traumatic stress disorder) 08/20/2016 Overview: Started in 2000. Morbid obesity with BMI of 45.0-49.9, adult 04/28/2016 Anxiety and depression 10/17/2015 Overview: Started in 2000 Hypothyroidism 05/21/2015 Left knee pain 03/30/2015 Depressive disorder, not elsewhere classified 10/03/19 15 Posttraumatic stress disorder 05/22/2014 Adjustment disorder with mixed anxiety and depressed m ood 03/27/2014 Sebaceous cyst 12/28/2013 RH Negative 05/31/2007 Resolved Problems Problem Noted Date Resolved Date r/o Posttraumatic stress disorder 04/28/20142013 Encounters Date Type Specialty Care Team Description 04/20/2022 Telephone Rafia King MD Prior Authorization (omeprazole (PRILOSEC) 20 m g Delayed-Release capsule(PA Not Needed)) 04/14/2022 Telephone Rafia King MD Medic ation Management (omeprazole ) from Last 3 Months Immunizations Name Administration Dates Next Due Influenza, IIV3 (Age >=3 years) 05/21/2004 MMR 12/29/1995 Td (Age >=7 Years) 12/29/1995 Tdap 03/10/2012 Family History Medical History Relation Name Comments Diabetes Father Hyperlipidemia Father Hypertension Father Obesity Father Alcohol/Drug Mother Anesthesia Malignant Hyperthermia Neg. Anesthesia Problem Neg. Diabetes Paternal Grandmother Hyperlipidemia Paternal Grandmother Hypertension Paternal Grandmother Obesity Paternal Grandmother Relation Name Status Comments Father Alive Mother Alive Neg. Paternal Grandmother Social History Tobacco Use Types Packs/Day Years Used Date Current Some Day Smoker Cigarettes 0.25 14 Star gera: 01/18/2002 Smokeless Tobacco: Never Used Tobacco Cessation: Ready to Quit: Yes; C ounseling Given: Yes Comments: 2-3 per week Alcohol Use Standard Drinks/Week Comments No 0 (1 standard drink = 0.6 oz pure alcoho l) Sex Assigned at Date Recorded Not on file Obstetrics History Para Term AB IAB SAB Ectopic Multiple Living Live Births 3 3 3 Date Outcome GA Total Labor/2nd/3rd Weight Sex Delivery Anes PTL Iza A 1 A5 Name Clin Labor Term Term Term Last Filed Vital Signs Vital Sign Reading Time Taken Comments Blood Pressure 125/84 10/17/2021 3:36 PM CDT Pulse 70 10/17/2021 3:36 PM CDT Temperature 36.8 ??C (98.3 ??F) 10/17/2021 3:36 PM CDT Respiratory Rate 18 05/18/2020 3:26 PM ELECTRICAL AND INSTRUMENT ENGINEER Oxygen Saturation 99% 10/17/2021 3:36 PM CDT Inhaled Oxygen Concentration - - Weight 117.1 kg (258 lb 3.2 oz) 10/09/2021 9:18 AM CDT Height 161.2 cm (5' 3.47) 06/11/2021 3:28 PM ELECTRICAL AND INSTRUMENT ENGINEER Body Mass Index 45.07 06/11/2021 3:28 PM ELECTRICAL AND INSTRUMENT ENGINEER Plan of Treatment Health Maintenance Due Date Last Done Comments Pneumococcal series for age 19-64 1989 (1 - PCV) COVID-19 vaccine series (4 - 09/20/2021 07/26/2021, 021, Booster for Pfizer series) 09/29/2020 Influenza for age 9-49 02/27/2022 05/21/2004 Tetanus booster 03/10/2022 03/10/2012, 12/29/1995 BMI (ht and wt on same day) for 06/11/2022 06/11/2021, 03/29, age 18+ 01/18/2021, Additional history exists Depression screening for age 12+ 10/17/2022 10/17/2021, , 04/10/2021, Additional history exists Pap test for age 21-65 05/26/2023 05/26/2018, 05/26/2018, 05/21/2015, Additional history exists Tdap Completed 03/10/2012 Hepatitis C screening for age Completed 12/26/2014, 2012 18-79 Medical Devices Implanted Type Area Assembler Rubber Footwear Device Shelf Model / Identifier Expiration Serial / Date Lot Stent Uret [id number] [facility] - [id number] Right: A pplied Medical 06/24/2019 [id number] / Implanted: Qty: 1 on 03/05/2017 by Cricket Hung MD at [facility] Quantitative Medicine Jessica / [id number] Results Not on filefrom Last 3 Months Insurance Payer Benefit Plan Subscriber ID Effective Dates Phone Address Type / Group [employer] THIRD [id number] 2015-Evelyn [phone] [id number] [employer] [address] [id number] DANIA NAJERA [place] [id number] 2021-Presen [address] [place] [address] Phuong Hood Third Libertarian Self 1985 [phone] (Home) [place] [address] Advance Directives Latest Code Status on File Code Status Date Activated Date Inactivated Comments Full Code 03/05/2017 9:17 PM 03/06/2017 2:00 PM Full Code 03/05/2017 11:34 AM 03/05/2017 9:15 PM Care Teams Marine Oiler Relationship Specialty Start Date End Date Katlyn Castrejon PCP - General Physician Line Department Supervisor 12/08/18 BRIAN Paz [address] [place] [address] Cricket Gonzalez, Surgery - Urology 03/04/17 Hilda York, Obstetrics and 03/04/17 Gynecology [address] [place] [address] Mando Anglin MD Consulting Physician Surgery - General 10/01/[address] [id number] Pricila Borja, Valving Machine Operator 10/01/17 RN 1601 [facility] [address] [place] [address]
--- OUTSIDE RECORDS SUMMARY | 2022-04-21 20:21 | XMS_ITS | Encounter Summary ---
:1985 Author Organization [place] Address [facility] [place] [address] Care Team Providers Name Role Phone Jared Justin MD Primary Care Provider Reason for Visit Auth/Cert Specialty Diagnoses / Procedures Referred By Contact Refer red To Contact Surgery Diagnoses right carpal tunnel syndrome Sh Periop Services Procedures RELEASE CARPAL TUNNEL [address] [place] [address] Phone: Referral ID Status Reason Start Date Expiration Date Visits Requ ested Visits Authorized [id number] 1 1 Encounter Details Date Type Department Care Team Description 09/17/2017 Hospital Encounter [facility], Radha Dow rpal tunnel [place] Phase II syndrome of right [address] [facility] wrist (Primary Dx) [place] [address] ORTHOPEDICS [phone] [place] [id number] Social History Tobacco Use Types Packs/Day Years [...] about your procedure, call Dr. Ponce at [phone] documented in this encounter Medications at Time [...] Ponce MD - 09/17/2017 2:07 PM CDT [facility] Brief Operative Note Pre-operative diagnosis: Right carpal tunnel syndrome Post-operative diagnosis Right carpal tunnel syndrome Procedure: Procedure(s): OPEN RIGHT CARPAL TUNNEL RELEASE - Wound Class: I-Clean Surgeon(s): Surgeon(s) and Role: * Jared Ponec MD - Primary Estimated blood loss: * [...] carpal tunnel release. SURGEON: Jared Ponce MD. STRAPPER OPERATOR: SARWAT Teixeira. ANESTHESIA: General. OPERATIVE PROCEDURE: I [...] room having tolerated the surgery well. JARED PONCE MD MT: DANITZA Name: HOLLAND GARZA Account: [id number] : 1985 Procedure Date: 09/17/2017 Document: [id number] cc: Jared Ponce MD documented in this encounter Plan of Treatment Not on filedocumented as of this encounter Procedures Procedure Name Priority Date/Time Associated Diagnosis Comme nts RELEASE, CARPAL TUNNEL 09/17/2017 1:16 PM CDT Right ca rpal tunnel syndrome documented in this encounter Visit Diagnoses Diagnosis Carpal tunnel syndrome of right wrist - Primary Carpal tunnel syndrome documented in this encounter Administered Medications Inactive Administered Medications - up to 3 most recent administrations Medication Order MAR Action Action Date Dose Rate Site fentaNYL (PF) (SUBLIMAZE) Given 09/17/2017 2:43 PM CDT 50 mcg injection 25-50 mcg 25-50 mcg, Intravenous, EVERY 5 MIN [...] mg 30 mg, Intravenous, ONCE, On Stacey 09/17/17 [...] ONCE PRN, for non-specific revers al of NIGHT GUARD anticholinergic side effects, Starting on Stacey 09/17/17 [...] 25-50 mcg 1427 (Given - Provider: Carolina Bender RN)1443 (Given - Provider: Carolina Bender RN) 25-50 mcg, Intravenous, EVERY 5 MIN PRN, Starting Stacey 3//18 at 1423, other, acute pain while in [...] EVERY 15 MIN PRN , Starting Stacey 3/18 at 1423, other, acute pain while in [...] RN) 0.3-0.5 mg, Intravenous, EVERY 10 MIN MI N, Starting Stacey 3/18 at 1423, Until Stacey 3/18 at 1845, other, acute pain.?May administer if [...] 15 MIN PRN, 2 doses, Starting Stacey 3//18 at 1423, Until Stacey 3/18 at 1845, post anesthesia shivering, PACU/Phase II, Give IV Push undiluted. 10-40 mg over 2-3 minutes, up to 125 mg over 3-15 minutes midazolam (VERSED) injection 0.5-1 mg 0.5-1 mg, Intravenous, EVERY 5 MIN PRN, Starting Stacey 09/17/17 at 1423, muscle spasms, sedation, Max cumulative [...] ONCE PRN, for non-s pecific reversal of NIGHT GUARD anticholinergic side effects, Starting Stacey 09/17/17 at [...] II documented in this encounter Care Teams Mixing Engineer Relationship Specialty Start Date End Date Jared Justin MD PCP - General Family Practice 09/08/[address] [address] documented as of this encounter
--- OUTSIDE RECORDS SUMMARY | 2022-04-21 20:22 | XMS_ITS | Encounter Summary ---
:[address] [facility] [address] [place] [address] Care Team Providers Name Role Phone Unassigned, Provider Primary Care Provider Unavailable Reason for Visit Procedure/Equipment (Routine) - Incomplete Specialty Diagnoses / Procedures Referred By Contact Refer red To Contact Diagnoses Acute low back pain, unspecified back pain laterality, with sciatica presence unspecified (HRC) Negro Medley MD Procedures XR Lumbar Spine AP/Lat Views [address] [facility] [address] [place] [address] Referral ID Status Reason Start Date Expiration Date Visits V isits Requested Authorized [id number] Incomplete 12/22/2016 03/23/2018 1 1 Encounter Details Date Type Department Care Team Description 12/22/2016 Imaging [facility] Negro Medley MD Acute low back pain, [address] [place] [address] 101 unspecified back [place], [place] [address] [address] laterality, with [phone] [place], [place] [address] sciatica presence [phone] (Wo rk) unspecified (HRC) Social History Tobacco Use Types Packs/Day Years Used Date Smoking Tobacco: Every Day Cigarettes 0.5 Sex Assigned at Date Recorded Not on file documented as of this encounter Plan of Treatment Not on filedocumented as of this encounter Procedures Procedure Name Priority Date/Time Associated Diagnosis Comme nts XR LUMBAR SPINE Routine 12/22/2016 12:42 PM Acute low back wan n, Results for this AP/LAT VIEWS CDT unspecified back procedure a re in pain laterality, the results with sciatica section. presence unspecified (HRC) documented in this encounter Results XR Lumbar Spine AP/Lat Views (12/22/2016 12:42 PM CDT) Anatomical Region Laterality Modality Spine, L-Spine Digital Radiography Specimen (Source) Anatomical Collection Method Collection Time Re ceived Time Location / / Volume Laterality 12/22/2016 12:34 PM CDT Narrative 12/22/2016 1:24 PM CDT COMPARISON: ??None. FINDINGS: ??Two views were obtained. ??N o fracture or subluxation of the lumbar vertebral bodies is identified. ??Vertebral disk space height and alignment appear normal. Procedure Note Dangelo Patricio MD - 12/22/2016Formattin g of this note might be different from the original. COMPARISON: None. FINDINGS: Two views were obtained. No fr acture or subluxation of the lumbar vertebral bodies is identified. Vertebral disk space height and alignment appear normal. Negro Medley MD RAD GD documented in this encounter Visit Diagnoses Diagnosis Acute low back pain, unspecified back pa in laterality, with sciatica presence unspecified (HRC) documented in this encounter Care Teams Staff Nuclear Medicine Technologist Relationship Specialty Start Date End Date Unassigned, Provider PCP - General 04/01/[address] [place] [address] documented as of this encounter
--- OUTSIDE RECORDS SUMMARY | 2022-04-21 20:22 | XMS_ITS | Clinical Summary ---
:1985 Author Organization [facility] Address [address], [place] [address] Care Team Providers Name Role Phone Unassigned, Provider Primary Care Provider Unavailable Source Comments You are receiving this document as you are listed as the primary care provider,follow-up provider, or the patient has been referred to you for consultation.This is in compliance with the Medicare and Medicaid EHR Incentive Program,which states Providers who transition their patient to another setting of careor provider of care or refers their patient to another provider of care shouldprovide summarycare record for each transition of care or referral. [facility] Allergies No known active allergies Medications Medication Sig Dispensed Refills Start Date End Date Status venlafaxine (EFFEXORXR) Take 75 mg by 0 Active 75 MG 24 hour release mouth daily. capsule omeprazole (PRILOSEC) 10 Take 10 mg by 0 Active MG capsule mouth daily. Take 1 hour before a meal. levothyroxine Take 75 mcg by 0 A ctive (SYNTHROID) 75 MCG mouth daily. tablet acetaminophen-codeine Take 1-2 Tabs by 20 Tab 0 12/22/2016 Active (TYLENOL NO. . 3) 300-30 mouth every 4 MG tablet hours as needed. Active Problems No known active problems Social History Tobacco Use Types Packs/Day Years Used Date Smoking Tobacco: Every Day Cigarettes 0.5 Sex Assigned at Date Recorded Not on file Last Filed Vital Signs Vital Sign Reading Time Taken Comments Blood Pressure - - Pulse - - Temperature 36.4 ??C (97.5 ??F) 12/22/2016 12:03 PM CDT Respiratory Rate - - Oxygen Saturation - - Inhaled Oxygen Concentration - - Weight 104.3 kg (230 lb) 12/22/2016 12:03 PM CDT Height 160 cm (5' 3) 12/22/2016 12:03 PM CDT Body Mass Index 40.74 12/22/2016 12:03 PM CDT Plan of Treatment Health Maintenance Due Date Last Done Comments Cervical Cancer Screening Due 1985 Hep C Screening (Preventive 1985 Services) HepB (1) 1985 COVID-19 Vaccine (#1) 1985 HIV Screening (Preventive 1999 Services) Adult Preventive Visit 2001 DTaP/Tdap/Td (1 - Tdap) 2002 Influenza (#1) 2022 Zoster/Shingles (1 of 2) 2033 HPV Vaccine Aged Out No longer eligib le based on patient's age to complete this topic HepA Aged Out No longer eligib le based on patient's age to complete this topic Hib Aged Out No longer eligib le based on patient's age to complete this topic IPV (Polio) Aged Out No longer eligib le based on patient's age to complete this topic MCV4 Aged Out No longer eligib le based on patient's age to complete this topic Pneumococcal Aged Out No longer eligib le based on patient's age to complete this topic Care Teams Gunite Mixer Relationship Specialty Start Date End Date Unassigned, Provider PCP - General 04/01/[address] [place] [address]
--- OUTSIDE RECORDS SUMMARY | 2022-04-21 20:22 | XMS_ITS ---
:1985 Author Care Team Providers Name Role Phone RADHA ALFARO PA-C Referring Provider [phone] Allergies Code Code System Name Reaction Severity Status Onset NKDA ? Medications Name Status Start Date Stop Date ? ? acetaminophen 300 mg-codeine 30 mg tablet Completed ? 08/20/2017 buspirone 15 mg tablet Active ? Not avail able cefuroxime axetil 250 mg tablet Completed ? 08/20/2017 cefuroxime axetil 500 mg tablet Completed ? 08/20/2017 cyclobenzaprine 10 mg tablet Active ? Not available diclofenac sodium 75 mg tablet,delayed release Active ? Not available Doc-Q-Lace 100 mg capsule Active ? Not av ailable doxycycline hyclate 100 mg capsule Completed ? 08/20/2017 fluconazole 150 mg tablet Active ? Not av ailable gabapentin 300 mg capsule Active ? Not av ailable gabapentin 600 mg tablet Active ? Not dorothea ilable ibuprofen 600 mg tablet Active ? Not avai lable levothyroxine 75 mcg tablet Active ? Not available lorazepam 1 mg tablet Active ? Not availa ble Mapap Extra Strength 500 mg tablet Active ? Not available meloxicam 15 mg tablet Active ? Not avail able methylprednisolone 4 mg tablets in a dose pack Completed ? 08/20/2017 metronidazole 500 mg tablet Active ? Not available nicotine 21 mg/24 hr daily transdermal patch Active ? Not available omeprazole 20 mg capsule,delayed release Active ? Not available oxybutynin chloride ER 5 mg tablet,extended release 24 Active ? Not available hr oxycodone 5 mg tablet Active ? Not availa ble oxycodone-acetaminophen 5 mg-325 mg tablet Active ? Not available prednisone 10 mg tablet Active ? Not avai lable prednisone 20 mg tablet Active ? Not avai lable sulfamethoxazole 800 mg-trimethoprim 160 mg tablet Active ? Not available tizanidine 4 mg tablet Active ? Not avail able topiramate 25 mg tablet Active ? Not avai lable tramadol 50 mg tablet Active ? Not availa ble venlafaxine 75 mg tablet Active ? Not dorothea ilable venlafaxine ER 150 mg capsule,extended release 24 hr Active ? Not available venlafaxine ER 75 mg capsule,extended release 24 hr Active ? Not available Ventolin HFA 90 mcg/actuation aerosol inhaler Active ? Not available Problems Name Status Onset Date Source ? Morbid Obesity Active 08/20/2017 ? Spasmodic Torticollis Active 08/20/2017 ? Chronic Pain Syndrome Active 08/20/2017 ? Cervical Spondylosis without Myelopathy Active 08/20/19 18 ? Lumbosacral Spondylosis without Myelopathy Active 08/20 ? Spasm of Back Muscles Active 08/20/2017 ? Myalgia/myositis - Multiple Active 08/20/2017 ? Procedures Date Name Performed by ? ? Carpal Tunnel Surgery Information not av ailable Notes: 2 times ? Appendectomy Information not avai lable ? Cholecystectomy Information not avai lable ? Hysterectomy Information not avai lable Notes: 3 C-sections Results Lab Results Date Name Specimen Result Interpretation Description Value Range Status Address ? 08/20/2017 Drug Screen, Urine ? No observation recorde d. ? ? ? Past Encounters None recorded. Social History Tobacco Smoking Status Current Every Day Smoker Vaccine List Notes: Some vaccines listed in Documen t: #[id number] could not be added to this patient's chart. Please review this docu ment and add these vaccines to the patient's chart manually as needed. Plan of Care Reminders Provider Appointments None recorded. ? ? Lab None recorded. ? ? Referral None recorded. ? ? Procedures None recorded. ? ? Surgeries None recorded. ? ? Imaging None recorded. ? ? Vitals Height Weight BMI Blood Pressure 5 ft 3 in 271 lbs 48 kg/m2 124/81 mm[Hg]
--- OUTSIDE RECORDS SUMMARY | 2022-04-21 20:22 | XMS_ITS | Encounter Summary ---
:1985 Author Organization [employer] Address [address] [place] [address] Care Team Providers Name Role Phone Unassigned, Provider Primary Care Provider Unavailable Reason for Visit Reason Onset Date Comments QUESTIONS, GENERAL 12/23/2016 Encounter Details Date Type Department Care Team Description 12/23/2016 Telephone [facility] juany Medley MD QUESTIONS, GENERAL Care [address] [place] [address] [address] [place] [address] [place], [place] [address] [phone] Social History Tobacco Use Types Packs/Day Years Used Date Smoking Tobacco: Every Day Cigarettes 0.5 Sex Assigned at Date Recorded Not on file documented as of this encounter Nursing Notes Alayna Roth RN - 12/23/2016 5:56 PM CDT Purchasing Coordinator informed the patient that Dr. Corcoran () is declining writing for anything else. He feels that the diclofenac and tylenol # 3 should be sufficient in meeting her needs for a lumbar sprain/strain. Purchasing Coordinator asked that she also use heat/cold dependant on what works best for her. Pt. Verbalized an understanding at this time. She stated, I guess I should get an MRI sooner than later. Purchasing Coordinator reinforced pt. Coming back in prn. Alayna Roth RN - 12/23/2016 5:12 PM CDT Pt. Calling in stating her pain is not decreasing despite diclofenac and tylenol # 3. She is asking for something else. NURSERY SUPERVISOR below. Dr. Parker note below as well. Please advise. [place] Date: 12/23/16 Query Report Page#: 1 Patient Rx History Report KAYLA LINO Search Criteria: Last Name 'kayla' and First Name 'phuong' and = 81 and Request Period = 12/24/15' to 12/23/16' - 5 out of 5 Recipients Selected. Fill Date Product, Str, Form Qty Days Pt ID Prescriber Written RX# N/R* Pharm MED+ ------ ---- --------- --------- ------ 12/22/2016 ACETAMINOPHEN-COD #3 TABLET 20.00 2 [id number] 12/22/2016 [id number] N [id number] 45.0 10/07/2016 LORAZEPAM 0.5 MG TABLET 10.00 3 [id number] 10/07/2016 [id number] N [id number] 00.0 08/29/2016 ACETAMINOPHEN-COD #3 TABLET 40.00 4 [id number] 08/29/2016 [id number] N [id number] 45.0 07/25/2016 ACETAMINOPHEN-COD #3 TABLET 40.00 4 [id number] 07/25/2016 [id number] N [id number] 45.0 07/08/2016 ACETAMINOPHEN-COD #3 TABLET 35.00 3 [id number] 07/08/2016 [id number] N [id number] 52.5 07/08/2016 ACETAMINOPHEN-COD #3 TABLET 5.00 1 [id number] 07/08/2016 [id number] N [id number] 22.5 04/28/2016 ACETAMINOPHEN-COD #3 TABLET 30.00 5 [id number] 04/28/2016 [id number] N [id number] 27.0 04/08/2016 OXYCODONE-ACETAMINOPHEN 5-325 15.00 2 [id number] 04/08/2016 [id number] N [id number] 56.25 02/21/2016 OXYCODONE-ACETAMINOPHEN 5-325 40.00 4 [id number] 02/21/2016 [id number] N [id number] 75.0 01/29/2016 OXYCODONE-ACETAMINOPHEN 5-325 40.00 4 [id number] 01/29/2016 [id number] N [id number] 75.0 01/16/2016 OXYCODONE-ACETAMINOPHEN 5-325 50.00 6 [id number] 01/16/2016 [id number] N [id number] 62.5 01/07/2016 OXYCODONE-ACETAMINOPHEN 5-325 15.00 2 [id number] 01/07/2016 [id number] N [id number] 56.25 01/07/2016 TRAMADOL HCL 50 MG TABLET 30.00 8 [id number] 11/09/2015 [id number] R [id number] 18.75 *N/R N=New R=Refill +MED Daily Prescribers for prescriptions listed [id number] JARED DORSEY MD; [address] [facility] [address] [id number] ABY WEI (); [address] [place] [address] [id number] MELISSA BOYCE MD; [address] [place] [address] [id number] GERALDINE BROOKS; [address] [facility] [address] [id number] CLAUDIA SUNSHINE MD; [address] [place] [id number] BETTY BENITEZ; C/O [facility], [address] [facility] [address] [id number] AMAURY MEDLEY C, MD; [address] [facility] [place] [address], [facility] [address] Pharmacies that dispensed prescriptions listed [id number] [facility]; [address] [facility] [address], [id number] [facility]; [address] [facility] [address], Patients that match search criteria [id number] KAYLA LINO, 83; [address], [facility] [address] [id number] KAYLA LINO, 83; [address], [place] [id number] KAYLA LINO, [address]; [address], [facility] [address] [id number] KAYLA LINO, 83; [address], [facility] [address] Per CDC guidance, the conversion factors and associated daily morphine milligram equivalents for drugs prescribed as part of medication-assisted treatment for opioid use disorder should not be used to benchmark against dosagethresholds meant for opioids prescribed for pain. Report Disclaimers: 12/22/16 Dr. Medley IMAGING: X-rays of the lumbar spine were performed and demonstrate no degenerative disease, fracture, listhesis. ?? ASSESSMENT AND PLAN: This is a 31-year-old female with a one-month history of back pain. No obvious fracture evident on x-ray. Minimal concern for nerve root impingement on exam or history. Suspect possible ligamentous sprain or lumbar strain. Discussed this with the patient in detail and recommended a course of physical therapy. Additionally, was given a prescription for Tylenol No. 3 to be used for severe pain only as well as a prescription for diclofenac which was recommended to be used regularly on a b.i.d. basis for the next 2 weeks until follow up. If there is significant worsening in her pain, I recommended follow up. Otherwise follow up in roughly one month if the pain does not improve with our current plan. The patient is understanding and in agreement with this plan. ?? SCE:GILES C: R:12/23/16 06:54 documented in this encounter Plan of Treatment Not on filedocumented as of this encounter Visit Diagnoses Not on filedocumented in this encounter Care Teams Cook Supervisor Relationship Specialty Start Date End Date Unassigned, Provider PCP - General 04/01/[address] [place] [id number] documented as of this encounter
--- OUTSIDE RECORDS SUMMARY | 2022-04-21 20:22 | XMS_ITS | Encounter Summary ---
:1985 Author [facility] Address [address], [place] [address] Care Team Providers Name Role Phone Unassigned, Provider Primary Care Provider Unavailable Reason for Referral Therapies (Routine) - Closed Specialty Diagnoses / Procedures Referred By Contact Refer red To Contact Diagnoses Acute low back pain, unspecified back pain laterality, with sciatica presence unspecified (HRC) Negro Medley MD [address] [place] [id number] Referral ID Status Reason Start Date Expiration Date Visits Requ ested Visits Authorized [id number] Closed 12/22/2016 02/20/2017 1 1 Scheduling Instructions If scheduling assistance is needed, eliana harrell inquire with the medical office staff upon exiting your appointment or contact the ordering clinic for recommended locations. This recommended service/s may not be co malena by your insurance coverage. To find out your specific benefit coverage, please c all the number on your insurance card. herapies (Routine) - Closed Specialty Diagnoses / Procedures Referred By Contact Refer red To Contact Diagnoses Acute low back pain, unspecified back pain laterality, with sciatica presence unspecified (HRC) Negro Medley MD [address] [place] [id number] Referral ID Status Reason Start Date Expiration Date Visits Requ ested Visits Authorized [id number] Closed 12/22/2016 02/20/2017 1 1 Scheduling Instructions Your provider has recommended an appoint ment with [facility]. You may call [phone] to schedule your appoi ntment. If you do not schedule an appointment within the next 1 to 3 business days, we will call you to help arrange your appointment. We suggest you call your [employer] insurance company about your coverage and benefits for this appointment. Procedure/Equipment (Routine) - Incomplete Specialty Diagnoses / Procedures Referred By Contact Refer red To Contact Diagnoses Acute low back pain, unspecified back pain laterality, with sciatica presence unspecified (HRC) Negro Medley MD Procedures XR Lumbar Spine AP/Lat Views [address] [place] [address] [address] [place] [address] Referral ID Status Reason Start Date Expiration Date Visits V isits Requested Authorized [id number] Incomplete 12/22/2016 03/23/2018 1 1 Reason for Visit Reason Comments Back Pain low back, onset about 1 maria esther h ago Encounter Details Date Type Department Care Team Description 12/22/2016 Office Visit [facility] juany Medley MD Acute low back pain, Care [address] [place] [address] unspecified back pain [address] [facility] [address] laterality, with [place], [place] [address] [address] [place], [place] sciatica presence [phone] unspecified (HRC) [phone] (Primary Dx) (Work) Social History Tobacco Use Types Packs/Day Years [...] Mass Index 40.74 12/22/2016 12:03 PM CDT documented in this encounter Patient Instructions Patient InstructionsLee, Rigoberto Gonzales, JEFERSON - 12/22/2016 11:[address] Negro [facility] Medication Requests: Prescriptions are not filled on Weekends or on Weekdays after 3:00PM For all medication refills: Request a refill using MyChart or contact your Pharmacy [facility] Nurse Line: Please contact [facility] Nurse line for all medical requests and questions at [phone] MRI Scheduling: To schedule an MRI at [facility] please call [phone] Paperwork Requests: Questions regarding FMLA or disability paperwork please call [phone] Workers??? Compensation: Please contact our department for any Work Comp concerns at Email: [email or web address] Lumbar strain Follow up in 1 mos PT with in 2 days documented in this encounter Progress Notes Negro Medley MD - 12/23/2016 6:50 AM CDT NAME: PHUONG HOOD MR#: [id number] CSN: [id number] AUTHENTICATING CLINICIAN: Negro Medley MD CONFIRM #: [id number] LOC: 711 CLINIC PROGRESS NOTE DATE OF VISIT: 12/22/2016 : 1985 CHIEF COMPLAINT: Low back pain. HPI: The patient is here today with a friend with concern for one month of worsening low back pain. Pain is localized in the middle of her lumbar spine with some radiation up her back. Denies any radiation into her buttocks or down into her legs. She has not had any tingling, numbness or weakness. She has no specific trauma or injury to her back. Pain is worse when standing or sitting for long periods of time. More comfortable when lying down or lying still. It is somewhat better with heat. She has been taking regular ibuprofen which additionally does help some. She has had career development consultant a number oftimes and has been treating at home with this stim device which she does not feel has been all that helpful. She additionally used some muscle relaxant that she believes was Flexeril prescribed by her primary doctor which she additionally did not feel was beneficial. REVIEW OF SYSTEMS: The pertinent items are noted in the HPI above. PAST MEDICAL HISTORY, CURRENT MEDICATIONS AND ALLERGIES: Reviewed in electronic medical record as appropriate. OBJECTIVE: VITAL SIGNS: Height 5 feet 3 inches. Weight 200 pounds. Temperature 97.5 degrees Fahrenheit. GENERAL: Alert, pleasant, no distress. BACK/SPINE: She is somewhat tender over the spinous processes in the lumbar spine. Less tenderness in the paraspinal area bilaterally. There is no tenderness to palpation of the spinous processes in the cervical or thoracic spine. She has pain with forward flexion and standing from a flexed position. S he has some pain with side bending and minimal pain with rotation at the waist. No pain with extension. She is able to walk on her toes and heels without difficulty. Slump test is positive for reproduction of pain in her back but no radicular symptoms. Negative straight leg raise. Reflexes are 2+ and symmetric at the patella and Achilles. Sensation is intact to light touch throughout the right lower extremity. IMAGING: X-rays of the lumbar spine were performed and demonstrate no degenerative disease, fracture, listhesis. ASSESSMENT AND PLAN: This is a 31-year-old [...] understanding and in agreement with this plan. SCE:GILES C: R:12/23/16 06:54 CONFIRM#:[id number] documented in this encounter Plan of Treatment Scheduled Referrals Name Type Priority Associated Diagnoses Order S [facility] Physical Therapy Referral Routine Acute low back pain, Ord ered: 12/22/2016 unspecified back pain laterality, with sciatica presence unspecified (HRC) Physical Therapy Referral Routine Acute low back pain, Ord ered: 12/22/2016 unspecified back pain laterality, with sciatica presence unspecified (HRC) documented as of this encounter Results XR Lumbar Spine AP/Lat [...] in laterality, with sciatica presence unspecified (HRC) - Primary Acute low back pain, unspecified back pa in laterality, with sciatica presence unspecified (HRC) documented in this encounter Care Teams Bologna Maker Relationship Specialty Start Date End Date Unassigned, Provider PCP - General 04/01/[address] [place] [id number] documented as of this encounter
--- NOTE | 2022-04-21 20:33 | ED_ITS ---
HPI - General Adult General Chief complaint: Unspecified Complaint, Adult Stated complaint: Dizzy,Feels Like Body's on Fire Time Seen by Provider: 04/21/22 19:51 History of Present Illness HPI narrative: Pt is a 37 year old woman who awoke this morning with general malaise and dizziness as well as headache. Pt has been crying extensively as she just went through a breakup. Pt's dizziness is now gone but the headache which is bitemperal is still present. She states the pain is 4/10. No other neurological symptoms. No fever or chills, rash. She has been eating and drinking less than normal due to her emotional turmoil. Pt states she is not pregnat as she has had a hysterectomy in the past. No similar symptoms noted. Pt has not tried any home remedies. Pt starting to feel better. Related Data Home Medications Medication Instructions Recorded Confirmed bupropion HCl 150 mg 24 hr tablet, mg PO 04/21/22 extended release levothyroxine 150 mcg tablet mcg 04/21/22 Allergies Allergy/AdvReac Type Severity Reaction Status Date / Time No Known Drug Allergies Allergy Verified 04/21/22 18:28 Review of Systems Status of ROS: Reports: 10 or more systems reviewed and unremarkable except as noted in History and below [facility] Medical History (Updated 04/21/22 @ 21:54 by Josue Mcdermott MD) Depression Hypothyroidism Post hysterectomy menopause Social History Smoking Status: Current every day smoker How often do you have a drink containing alcohol: never AUDIT-C Alcohol total score: 0 Non-prescribed substance use: denies use Exam Narrative: Exam Narrative: EXAM GENERAL: Patient appears comfortable and well. EYES: No scleral icterus. ENT: Tympanic membranes and oropharynx normal. LYMPH: No supraclavicular or cervical lymphadenopathy. SKIN: Visible skin seen during exam normal or with benign process only. EXT: No dependent lower extremity pedal edema. HEART: Regular rate and rhythm with no murmurs, rubs, or gallops. LUNGS: Clear to auscultation bilaterally with no crackles or wheezes. ABD: Soft, non tender, non distended. PSYCH: Good eye contact, speech is not pressured. Const: Vital Signs, click to edit/add: Vital Signs - 24 hr 04/21/22 18:25 04/21/22 21:22 Temperature 97.3 F L Pulse Rate [Right Pulse Oximeter] 61 57 L Respiratory Rate 18 16 Blood Pressure [Ri ght Upper Arm] 125/79 116/79 Pulse Oximetry 98 97 Oxygen Delivery Me thod Room Air Room Air Course Course Hospital Course: Pt seen and examined. Pt given 1 liter ns and 30 mg Zofran. CBC and CMP ordered. Reevaluation(s) Reevaluation #1: Pt feeling better after 1 l ns and 30 toradol. Labs reviewed and are stable. Time: 21:50 Vital Signs Vital signs: Initial Vital Signs Temperature 97.3 F L 04/21/22 18:25 Temperature Source Temporal Artery Scan 04/21/22 18:25 Pulse Rate 61 04/21/22 18:25 Respiratory Rate 18 04/21/22 18:25 Blood Pressure 125/79 04/21/22 18:25 Blood Pressure Mean 94 04/21/22 18:25 Blood Pressure Position Sitting 04/21/22 18:25 Pulse Oximetry 98 04/21/22 18:25 Oxygen Delivery Method 04/21/22 18:25 Vital Signs Temperature 97.3 F L 04/21/22 18:25 Pulse Rate 61 04/21/22 18:25 Respiratory Rate 18 04/21/22 18:25 Blood Pressure 125/79 04/21/22 18:25 Pulse Oximetry 98 04/21/22 18:25 Oxygen Delivery Method 04/21/22 18:25 Temperature 97.3 F L 04/21/22 18:25 Pulse Rate 57 L 04/21/22 21:22 Respiratory Rate 16 04/21/22 21:22 Blood Pressure 116/79 04/21/22 21:22 Pulse Oximetry 97 04/21/22 21:22 Oxygen Delivery Method 04/21/22 21:22 Medical Decision Making MDM Narrative Medical decision making narrative: Pt is a 37 year old who broke up with her boyfriend in the last day or so who presents with general malaise and headache. Pt's CMP and CBC largely unremarkable. Pt's exam normal. Pt feels better after ns and toradol. Pt treated symptomatically with outpt follow up. Pt tested negative for COVID19 earlier today at home. Differential Diagnosis Differential Diagnosis: Fever, Viral syndrome, Dehydration, Electrolyte imbalance, emotional turmoi Lab Data Labs: Lab Results 04/21/22 04/21/22 Range/Units 20:35 20:35 WBC 9.71 (4.50-11.00) K/uL RBC 4.58 (4.00-5.20) m/uL Hgb 13.9 (12.0-16.0) gm/dL Hct 41.6 (33.0-51.0) % MCV 91 (80-100) fL MCH 30 (26-34) pg MCHC 33 (32-36) gm/dL RDW Coeff of Devika 13.0 (11.5-15.5) % Plt Count 178 (140-440) K/uL Neut % (Auto) 50.0 (42.0-72.0) % Lymph % (Auto) 41.1 (20-44) % [place] % (Auto) 6.4 (0.0-11.0) % Eos % (Auto) 2.1 (0.0-7.0) % Baso % (Auto) 0.3 (0.0-3.0) % Neut # (Auto) 4.86 (1.7-7.0) K/uL Lymph # (Auto) 3.99 H (0.90-2.90) K/uL [place] # (Auto) 0.60 (0.00-0.90) K/UL Eos # (Auto) 0.20 (0.00-0.50) K/uL Baso # (Auto) 0.03 (0.00-0.30) K/uL Abs Immat Gran (auto) 0.01 (0.00-0.30) K/uL Sodium 134 L (135-149) mmol/L Potassium 4.1 (3.6-5.1) mmol/L Chloride 104 (96-114) mmol/L Carbon Dioxide 29 (20-32) mmol/L BUN 9 (5-24) mg/dL Creatinine 0.7 (0.5-1.5) mg/dL Estimated Creat Clear 89.26 Estimated GFR 113 ml/min Glucose 84 (60-115) mg/dL Calcium 8.9 (8.4-10.6) mg/dL Total Bilirubin 0.4 (0.1-1.5) mg/dL AST 19 (12-35) U/L ALT 13 (4-35) U/L Alkaline Phosphatase 52 (40-150) U/L Total Protein 6.7 (6.0-8.3) g/dL Albumin 3.9 (3.3-5.0) g/dL Discharge Plan Discharge Clinical Impression: Dehydration Condition: Stable Instructions: Dehydration (ED) Additional Instructions: Tylenol Motrin Rest Fluids Activity Level: No Restrictions Discharge Diet: Regular Prescriptions: No Action levothyroxine 150 mcg tablet bupropion HCl 150 mg tablet extended release 24 hr PO Follow Up/Referrals: Katlyn Castrejon PA-C [Primary Care Provider] - Stand Alone Forms: MyHealth Info Instructions
[2022-04-21 20:44] LABS: Basophils Absolute Auto 0.03 K/uL (0.00-0.30); Basophils Percent Auto 0.3 % (0.0-3.0); Eosinophils Percent Auto 2.1 % (0.0-7.0); Hematocrit 41.6 % (33.0-51.0); Hemoglobin* 13.9 gm/dL (12.0-16.0); Immature Granulocytes Abs Auto 0.01 K/uL (0.00-0.30); Lymphocytes Absolute Auto 3.99 K/uL (0.90-2.90); Lymphocytes Percent Auto 41.1 % (20-44); Mean Corpuscular HGB Conc 33 gm/dL (32-36); Mean Corpuscular Hemoglobin 30 pg (26-34); Mean Corpuscular Volume 91 fL (80-100); Monocytes Percent Auto 6.4 % (0.0-11.0); Neutrophils Absolute Auto 4.86 K/uL (1.7-7.0); Platelet Count* 178 K/uL (140-440); Red Blood Count 4.58 m/uL (4.00-5.20); White Blood Count* 9.71 K/uL (4.50-11.00)
[2022-04-21] MEDS: KETOROLAC 30 MG/ML inj IVP (20:48)
[2022-04-21] MEDS: 0.9 % SODIUM CHLORIDE 1000 ml 1,000 ML IV (20:48)
[2022-04-21 21:05] LABS: Slide Review Reflex No
[2022-04-21 21:08] LABS: Chloride* 104 mmol/L (96-114)
[2022-04-21 21:09] LABS: Albumin* 3.9 g/dL (3.3-5.0); Potassium* 4.1 mmol/L (3.6-5.1); Sodium* 134 mmol/L (135-149)
[2022-04-21 21:12] LABS: Alanine Aminotransferase* 13 U/L (4-35); Alkaline Phosphatase* 52 U/L (40-150); Aspartate Amino Transferase* 19 U/L (12-35); Bilirubin Total* 0.4 mg/dL (0.1-1.5); Blood Urea Nitrogen* 9 mg/dL (5-24); Carbon Dioxide* 29 mmol/L (20-32); Creatinine* 0.7 mg/dL (0.5-1.5); Est. Creatinine Clearance* 89.26; Estimated Glomerular Filt Rate 113 ml/min; Glucose* 84 mg/dL (60-115); Total Protein* 6.7 g/dL (6.0-8.3)
[2022-04-21 21:13] LABS: Calcium* 8.9 mg/dL (8.4-10.6)
[2022-04-21 21:22] VITALS: BP 116/79; PULSE 57; RESP 16; O2SAT 97
== END 2022-04-21 22:05 | disposition home or self-care (01) ==
PROVIDERS: Emergency Provider Internal Medicine; PCP Physician Assistant Medical
DX: E86.0 Dehydration (principal); R53.81 Other malaise; R51.9 Headache, unspecified
CPT/HCPCS: 36415; 80053; 85025; 96361; 96374; 99283; 99284; J1885; J7030

== ENCOUNTER 2022-08-24 19:42 | Emergency (ER) | payer MEDICAID, SELFPAY ==
[2022-08-24 19:47] VITALS: BP 145/104; PULSE 81; RESP 18; TEMP 36.4; O2SAT 99
[2022-08-24] MEDS: KETOROLAC 30 MG/ML inj IM (20:27)
[2022-08-24 20:35] VITALS: PULSE 80; RESP 18; O2SAT 99
--- NOTE | 2022-08-24 23:24 | ED.GENADULT ---
HPI - General Adult General Date Seen: 08/24/22 Chief complaint: Dizziness/Vertigo Stated complaint: Dizzy, head pain, chills Time Seen by Provider: 08/24/22 19:45 Source: patient Mode of arrival: ambulatory Limitations: no limitations History of Present Illness HPI narrative: Patient is a 37-year-old who presents with for evaluation of right ear pain with some extension of pain into the right cheek, a couple of lesions on the inside of her right mouth, and some dizziness which she says is not exactly vertigo. Symptoms started earlier today. She says she has tried Tylenol 3 times and it is not helping with the pain. She has not had fevers although she feels just sort of blah today. She feels like the right side of her face is swollen. She does not have any specific teeth that are bothering her. Related Data Home Medications Medication Instructions Recorded Confirmed bupropion HCl 150 mg 24 hr tablet, mg PO 04/21/22 extended release levothyroxine 150 mcg tablet mcg 04/21/22 Previous Rx's Medication Instructions Recorded valacyclovir 1 gram tablet 1,000 mg PO TID #21 tabs 08/24/22 Allergies Allergy/AdvReac Type Severity Reaction Status Date / Time No Known Drug Allergies Allergy Verified 04/21/22 18:28 Review of Systems Status of ROS: Reports: 6 or more systems reviewed and unremarkable except as noted in History and below [facility] Medical History Depression Hypothyroidism Post hysterectomy menopause Social History Smoking Status: Current every day smoker How often do you have a drink containing alcohol: never AUDIT-C Alcohol total score: 0 Non-prescribed substance use: denies use Exam Narrative: Exam Narrative: Vital signs as noted above. In general, an alert, nontoxic woman. Head: Normocephalic, atraumatic. I do not note any facial swelling at this time. No erythema or warmth. Eyes: Pupils are equal reactive. Extraocular movements are full. Conjunctivae are normal. ENT: Mucous membranes are moist. She has a couple of superficial excoriations of the buccal mucosa on the right. Throat is otherwise normal. Dentition is poor, she has multiple missing teeth, but I do not feel an abscess and she does not have any teeth that are tender to percussion. Left TM and canal are normal, on the right, the TM is normal but she has some erythema and a couple of punctate lesions which are poorly defined in the canal near the TM. Neck: Supple without lymphadenopathy. Heart: Regular rate and rhythm. No murmur or rub. Lungs: Clear bilaterally. No increased work of breathing, crackles or wheezes. Extremities: Well perfused. No edema. No calf tenderness. Pulses intact. Neurologic: Patient is alert and oriented to person and place. Speech is fluent. Face is symmetric. Moves all extremities equally. Affect: Normal. Skin: Warm and dry. Well perfused. Const: Vital Signs, click to edit/add: Vital Signs - 24 hr 08/24/22 19:47 08/24/22 20:35 Temperature 97.5 F L Pulse Rate [Left P ulse Oximeter] 81 80 Respiratory Rate 18 18 Blood Pressure [Ri ght Upper Arm] 145/104 H Pulse Oximetry 99 99 Oxygen Delivery Me thod Room Air Room Air Documenting provider has reviewed patient's vital signs: yes Course Course Hospital Course: There is no evidence of otitis, I do not see an obvious dental abscess. I do wonder about early shingles, possible Tamir Mclean syndrome. I have discussed this with her. I think it is reasonable to start her on Valtrex at this time based on that suspicion. She request something stronger for pain, I have asked her to take ibuprofen plus Tylenol 3 times daily and I have given her oxycodone if needed for more severe pain. Discussed possible symptoms that may develop if this is Tamir Mclean including external rash, tinnitus, vertigo, Tripp's palsy. If she has worsening symptoms, follow up with primary care or return to the ER. Otherwise, if symptoms change, if she does feel that this becomes more of a dental problem, follow-up with dentist. For other symptoms such as facial swelling erythema or fever, return to the ER. Vital Signs Vital signs: Initial Vital Signs Temperature 97.5 F L 08/24/22 19:47 Temperature Source Temporal Artery Scan 08/24/22 19:47 Pulse Rate 81 08/24/22 19:47 Pulse Rhythm 08/24/22 19:47 Respiratory Rate 18 08/24/22 19:47 Blood Pressure 145/104 H 08/24/22 19:47 Blood Pressure Mean 117 08/24/22 19:47 Blood Pressure Position Sitting 08/24/22 19:47 Pulse Oximetry 99 08/24/22 19:47 Oxygen Delivery Method 08/24/22 19:47 Vital Signs Temperature 97.5 F L 08/24/22 19:47 Pulse Rate 81 08/24/22 19:47 Respiratory Rate 18 08/24/22 19:47 Blood Pressure 145/104 H 08/24/22 19:47 Pulse Oximetry 99 08/24/22 19:47 Oxygen Delivery Method 08/24/22 19:47 Temperature 97.5 F L 08/24/22 19:47 Pulse Rate 80 08/24/22 20:35 Respiratory Rate 18 08/24/22 20:35 Blood Pressure 145/104 H 08/24/22 19:47 Pulse Oximetry 99 08/24/22 20:35 Oxygen Delivery Method 08/24/22 20:35 Discharge Plan Discharge Clinical Impression: Acute otalgia Patient Disposition: Home, Self-Care Condition: Stable Instructions: Earache (ED) Additional Instructions: For pain, ibuprofen 400 mg plus Tylenol 1000 mg 3 times daily with food. For uncontrolled pain, oxycodone as needed. Valtrex as prescribed. You may have early shingles, and may develop a rash more extensively, particularly on the outside of your ear. Other symptoms that could develop if this is shingles could be vertigo, weakness on the right side of your face, ringing in your ear or altered taste or hearing. If you note any of these symptoms, I would recommend that you follow-up with your primary care doctor. Prescriptions: New valacyclovir 1 gram tablet 1,000 mg PO TID Qty: 21 2RF No Action levothyroxine 150 mcg tablet bupropion HCl 150 mg tablet extended release 24 hr PO Follow Up/Referrals: Katlyn Castrejon PA-C [Primary Care Provider] - Stand Alone Forms: [employer] Info Instructions
== END 2022-08-24 20:45 | disposition home or self-care (01) ==
PROVIDERS: Emergency Provider Emergency Medicine; PCP Physician Assistant Medical
DX: H92.09 Otalgia, unspecified ear (principal)
CPT/HCPCS: 96372; 99283; 99284; J1885

== ENCOUNTER 2023-05-16 07:07 | Emergency (ER) | payer OTHER, SELFPAY ==
[2023-05-16 07:26] VITALS: BP 120/83; PULSE 76; RESP 16; TEMP 36.4; O2SAT 97; BMI 43.4
--- NOTE | 2023-05-16 07:37 | CRLHL7_ITS ---
For Patients: As a result of the Cures Act, medical imaging exams and procedure reports are released immediately into your electronic medical record. You may view this report before your referring provider. If you have questions, please contact your health care provider. INDICATION: Left hand injury. FINDINGS: Three views of the left hand were obtained. There is no acute fracture or dislocation. The joint space compartments are maintained. IMPRESSION: No acute bone abnormality. Dictated by Janusz Rdz MD @ 05/16/2023 8:32:13 AM (Electronically Signed)
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
--- OUTSIDE RECORDS SUMMARY | 2023-05-16 07:48 | XMS_ITS | Continuity of Care Document ---
Author Name Unknown Organization [facility] Address [address] [place] [address] Phone Care Team Providers Care Industrial Maintenance Manager Name Role Phone Kwame Smith MD Unavailable Unavailable Medications Medication Instructions Dosage Effective Dates (start - stop) Status Comments OMEPRAZOLE (unknown strength) Not Available - Active LEVOTHYROXINE SODIUM (unknown strength) Not Available - Active VENLAFAXINE HCL (unknown strength) Not Available - Active Procedures Procedure Date Office/Outpatient Visit,Jose M Luis 2018 Advance Directives Directive Yes / No Effective Date File Name No Information Encounters Encounter Description Practice Location Reason(s) For Visit Diagnoses Date Provider Providers Copied on Encounter [facility], [address], [place], [id number], [place] tel:[phone] [facility] No Information 9 Sarah Puente. [facility], [address] [place] [address], [facility] [address], [place], [place], [id number] , [place]. [phone] Office/Outpat ient Visit,[facility], [address], [place], [id number], [place] tel:[phone] [facility] Other intervertebral disc degeneration, lumbar region 9 Iván Hernandez. [facility], [address] [place] [address] [address], [place], [place], [id number] , [place]. tel:[phone] Referring Provider: Karson Zepeda, [facility] [address] [facility], [place], [address]. tel:[phone] [facility], [address], [place], [place], [id number], [place] tel:[phone] [facility] Low back pain Mateus Moore. [facility], [address], [place], [address], [place]. tel:[phone] Family History Family Member Type Diagnosis Age At Onset No Information Payers Payer name Insurance type Covered republican ID Authoriza tion(s) No Information Social History Type Description Quantity Date Captured Comments Sex Female Smoking Status No Information Chief Complaint And Reason For Visit No Information Reason For Referral Reason For Referral No Information History Of Present Illness Encounter Date Complaint History Of Prese nt Illness No Information Functional Status Date Functional Assessmen t No Information Instructions Date Instruction Additional Infor mation No Information Assessments Type Assessment Date No Information Patient Care Teams Name Effective Dates (start - stop) Status Members No Information
[2023-05-16] MEDS: IBUPROFEN 200 MG TABLET 600 MG PO (08:11)
== END 2023-05-16 08:13 | disposition home or self-care (01) ==
PROVIDERS: Emergency Provider Internal Medicine; PCP Student in an Organized Health Care Education/Training Program
DX: S63.92XA Sprain of unspecified part of left wrist and hand, initial encounter (principal); W50.1XXA Accidental kick by another person, initial encounter; Y93.89 Activity, other specified; Y92.219 Unspecified school as the place of occurrence of the external cause; Y99.0 Civilian activity done for income or pay
CPT/HCPCS: 73130; 99283; A9270

== ENCOUNTER 2023-09-15 07:20 | Emergency (ER) | payer MEDICAID, SELFPAY ==
[2023-09-15 07:50] VITALS: BP 117/61; PULSE 72; RESP 18; TEMP 36.8; O2SAT 99; BMI 42.5
--- NOTE | 2023-09-15 08:06 | ED.EYEPROB ---
HPI - Eye Problem General Time Seen by Provider: 08:06 Date Seen: 09/15/23 Chief complaint: Eye Problems Stated complaint: right eye redness Time Seen by Provider: 09/15/23 08:04 Source: patient and RN notes reviewed Mode of arrival: ambulatory Limitations: no limitations History of Present Illness HPI Narrative: This 38-year-old female is coming in with right eye a lid swelling and soreness. She states is a gland that is inflamed on the inner upper corner of her right eyelid. It is draining in tearing. She has had no fevers or chills. It started yesterday, today the eyelid is more swollen. She used in eyeliner the day before this happened, did throw that. No trauma. She goes to [facility]. She has been hot packing. Related Data Home Medications Medication Instructions Recorded Confirmed omeprazole 20 mg capsule,delayed 20 mg PO QDAY 03/14/23 08/25/23 release Previous Rx's Medication Instructions Recorded amoxicillin 875 mg-potassium 1 tab PO BID #14 tabs 09/15/23 clavulanate 125 mg tablet gentamicin 0.3 % eye drops 2 drp ophthalmic (eye-right) QID 5 09/15/23 days #5 mL Allergies Allergy/AdvReac Type Severity Reaction Status Date / Time No Known Drug Allergies Allergy Verified 08/25/23 10:37 Review of Systems Narrative: As per HPI. PFS PFS Medical History Post hysterectomy menopause ?E89.40 - Asymptomatic postprocedural ovarian failure (ICD-10) ?Z90.710 - Acquired absence of both cervix and uterus (ICD-10) Depression ?F32.A - Depression, unspecified (ICD-10) Hypothyroidism ?E03.9 - Hypothyroidism, unspecified (ICD-10) Social History Smoking Status: Current every day smoker What tobacco products do you use: cigarettes Do you use any of these nicotine containing products: None Second hand tobacco smoke exposure: Yes How often do you have a drink containing alcohol: never How often do you have six or more drinks on one occasion: Never AUDIT-C Alcohol total score: 0 Non-prescribed substance use: denies use service: No Exam Const: Vital Signs, click to edit/add: Vital Signs - 24 hr 09/15/23 07:50 Temperature 98.3 F Pulse Rate [Pulse Oximeter] 72 Respiratory Rate 18 Blood Pressure [Ri ght Forearm] 117/61 Pulse Oximetry 99 Oxygen Delivery Me thod Room Air 38-year-old female that is alert, interactive, no apparent distress. She has quite visible right upper eyelid swelling and erythema. It is tender. Her eyes tearing, can see a little yellowish drainage. Underlying sclera / conjunctiva clear. Pupils equal round, conjugate gaze. I do not see a definite hordeolum but she states she feels a cysticarea in the inner upper eyelid. The swelling and erythema does not extend beyond the eyelid. She is no preauricular, no submental, no cervical adenopathy. Documenting provider has reviewed patient's vital signs: yes Course Course ED Course: Discussed with patient that this is very likely inflamed and probably infected gland within the eyelid. We will get her on eyedrops, given the area of swelling of the eyelid do think we should use oral antibiotics as well. Have recommended that she follow-up with her eye doctor for recheck. She should certainly follow up sooner if she is not improving. She was calling her eye doctor office as I was leaving the room. Vital Signs Vital signs: Initial Vital Signs Temperature 98.3 F 09/15/23 07:50 Temperature Source Temporal Artery Scan 09/15/23 07:50 Pulse Rate 72 09/15/23 07:50 Pulse Rhythm Regular 09/15/23 07:50 Respiratory Rate 18 09/15/23 07:50 Blood Pressure 117/61 09/15/23 07:50 Blood Pressure Mean 79 09/15/23 07:50 Blood Pressure Position Supine 09/15/23 07:50 Pulse Oximetry 99 09/15/23 07:50 Oxygen Delivery Method Room Air 09/15/23 07:50 Vital Signs Temperature 98.3 F 09/15/23 07:50 Pulse Rate 72 09/15/23 07:50 Respiratory Rate 18 09/15/23 07:50 Blood Pressure 117/61 09/15/23 07:50 Pulse Oximetry 99 09/15/23 07:50 Oxygen Delivery Method Room Air 09/15/23 07:50 Temperature 98.3 F 09/15/23 07:50 Pulse Rate 72 09/15/23 07:50 Respiratory Rate 18 09/15/23 07:50 Blood Pressure 117/61 09/15/23 07:50 Pulse Oximetry 99 09/15/23 07:50 Oxygen Delivery Method Room Air 09/15/23 07:50 Discharge Plan Discharge Clinical Impression: Inflammation of eyelid, right Patient Disposition: Home, Self-Care Condition: Stable Instructions: Jono (ED) Additional Instructions: Use oral and eyedrops antibiotics as prescribed. Continue warm compresses. Schedule follow-up with your eye clinic for recheck or if worsening. Can use Tylenol and/or ibuprofen per bottle directions for discomfort. Activity Level: Activity as Tolerated Prescriptions: New amoxicillin-pot clavulanate 875-125 mg tablet 1 tab PO BID Qty: 14 0RF gentamicin 0.3 % drops 2 drp ophthalmic (eye-right) QID 5 Days Qty: 5 0RF No Action omeprazole 20 mg capsule,delayed release(DR/EC) 20 mg PO QDAY Follow Up/Referrals: GLORIA KWAN DO [Primary Care Provider] - Stand Alone Forms: [employer] Info Instructions
== END 2023-09-15 08:28 | disposition home or self-care (01) ==
LOC: ED 08:23
PROVIDERS: Emergency Provider Family Medicine; PCP Student in an Organized Health Care Education/Training Program
DX: H01.8 Other specified inflammations of eyelid (principal)
CPT/HCPCS: 99282; 99283

== ENCOUNTER 2024-05-20 07:28 | Emergency (ER) | payer MEDICAID, SELFPAY ==
[2024-05-20 07:35] VITALS: BP 119/78; PULSE 75; RESP 16; TEMP 37.2; O2SAT 97; BMI 44.3
--- NOTE | 2024-05-20 07:51 | CRLHL7_ITS ---
For Patients: As a result of the Century Cures Act, medical imaging exams and procedure reports are released immediately into your electronic medical record. You may view this report before your referring provider. If you have questions, please contact your health care provider. INDICATION: Neck pain, not otherwise described. COMPARISON: None available. TECHNIQUE: 3 views. FINDINGS: Normal alignment. Cervicothoracic junction is obscured by the patient`s shoulders on the lateral view. Well maintained vertebral body heights. Mild disc degeneration at C6-C7. Borderline thickened prevertebral soft tissues at the level of C2. Differential diagnostic considerations include pharyngitis. Clinical correlation is recommended. Otherwise normal prevertebral soft tissue contour and thickness. IMPRESSION: 1. Borderline thickened prevertebral soft tissues at the level of C2. Differential diagnostic considerations include pharyngitis. Clinical correlation is recommended. Otherwise normal prevertebral soft tissue contour and thickness. 2. Mild disc degeneration at C6-C7. Dictated by Uche Avery MD @ 05/20/2024 8:11:29 AM (Electronically Signed)
--- NOTE | 2024-05-20 08:18 | ED.GENADULT ---
HPI - General Adult General Chief complaint: Neck Injury/Pain Stated complaint: Severe Neck Pain Time Seen by Provider: 05/20/24 08:08 History of Present Illness HPI narrative: patient is having pain in the right side of the neck. unable to move the neck and constant pain. tried ice and heating pad. taken some Tylenol at 0400 and Motrin at 0600. rolled in over in bed heard a pop and crunch sound. 39-year-old woman presenting to the emergency department with complaint of neck pain. Checks started to feel some stiffness on the right side starting yesterday and it is just escalated and gone bilateral. She does can not move. Hurts in particular to rotate her neck. Treated with ice and heating pad. Acetaminophen ibuprofen. No trauma. Worsened particularly this morning. She says and I need to get to work. No complaints of pain radiating down her arms. Related Data Home Medications ?Medication ?Instructions ?Recorded ?Confirmed omeprazole 20 mg capsule,delayed 20 mg PO QDAY 03/14/23 05/23/24 release Previous Rx's ?Medication ?Instructions ?Recorded gabapentin 100 mg capsule 100 mg PO Q8H PRN pain #14 caps 05/23/24 hydrocodone 5 mg-acetaminophen 325 2 tab PO BID #6 tabs 05/23/24 mg tablet methocarbamol 1,000 mg tablet 1,000 mg PO QHS #14 tabs 05/23/24 methylprednisolone 4 mg tablets in See Rx Instructions PO PER PKG DIR 05/23/24 a dose pack #21 ea Allergies Allergy/AdvReac Type Severity Reaction Status Date / Time No Known Drug Allergies Allergy Verified 05/23/24 08:57 Review of Systems Status of ROS: Reports: 6 or more systems reviewed and unremarkable except as noted in History and below [facility] Medical History Post hysterectomy menopause ?E89.40 - Asymptomatic postprocedural ovarian failure (ICD-10) ?Z90.710 - Acquired absence of both cervix and uterus (ICD-10) Depression ?F32.A - Depression, unspecified (ICD-10) Hypothyroidism ?E03.9 - Hypothyroidism, unspecified (ICD-10) Social History Smoking Status: Current every day smoker What tobacco products do you use: cigarettes Do you use any of these nicotine containing products: None Second hand tobacco smoke exposure: Yes How often do you have a drink containing alcohol: never How often do you have six or more drinks on one occasion: Never AUDIT-C Alcohol total score: 0 Non-prescribed substance use: denies use service: No Exam Narrative: Exam Narrative: Pleasant. Clearly uncomfortable. Really limiting any movement of her neck. Tears up during our conversation. She is extremely tense along the paracervical musculature but particularly on the right side. No midline neck tenderness. Sore trapezius right greater than left. Oropharynx is unremarkable without particular erythema and without asymmetry. No difficulty breathing or swallowing evident. No stridor. Const: Vital Signs, click to edit/add: Vital Signs - 24 hr 05/20/24 07:35 Temperature 98.9 F Pulse Rate [Pulse Oximeter] 75 Respiratory Rate 16 Blood Pressure [Ri ght Upper Arm] 119/78 Pulse Oximetry 97 Oxygen Delivery Me thod Room Air Documenting provider has reviewed patient's vital signs: yes Course Vital Signs Vital signs: Initial Vital Signs Temperature 98.9 F 05/20/24 07:35 Temperature Source Temporal Artery Scan 05/20/24 07:35 Pulse Rate 75 05/20/24 07:35 Respiratory Rate 16 05/20/24 07:35 Blood Pressure 119/78 05/20/24 07:35 Blood Pressure Mean 91 05/20/24 07:35 Blood Pressure Position Sitting 05/20/24 07:35 Pulse Oximetry 97 05/20/24 07:35 Oxygen Delivery Method Room Air 05/20/24 07:35 Vital Signs Temperature 98.9 F 05/20/24 07:35 Pulse Rate 75 05/20/24 07:35 Respiratory Rate 16 05/20/24 07:35 Blood Pressure 119/78 05/20/24 07:35 Pulse Oximetry 97 05/20/24 07:35 Oxygen Delivery Method Room Air 05/20/24 07:35 Temperature 98.9 F 05/20/24 07:35 Pulse Rate 75 05/20/24 07:35 Respiratory Rate 16 05/20/24 07:35 Blood Pressure 119/78 05/20/24 07:35 Pulse Oximetry 97 05/20/24 07:35 Oxygen Delivery Method Room Air 05/20/24 07:35 Medications Administered Medications: Discontinued Medications Generic Name Dose Route Start Last Admin Trade Name Alyse PRN Reason Stop Dose Admin Bupivacaine HCl 10 ml 05/20/24 08:17 05/20/24 08:35 Bupivacaine 0.25% 30 Ml INJECTION 05/20/24 08:18 10 ml ONCE ONE Administration Lidocaine 1 patch 05/20/24 09:21 05/20/24 09:24 Lidocaine 5% Patch TRANSDERMA 05/20/24 09:22 1 patch ONCE ONE Administration Protocol Medical Decision Making MDM Narrative Medical decision making narrative: By the time I am seeing Ms. Hood the x-ray of the cervical spine has been ordered. I do review these images myself. There is some straightening of the lordotic curvature but I do not see any significant bony abnormality. Radiology over-read below TECHNIQUE: 3 views. FINDINGS: Normal alignment. Cervicothoracic junction is obscured by the patient`s shoulders on the lateral view. Well maintained vertebral body heights. Mild disc degeneration at C6-C7. Borderline thickened prevertebral soft tissues at the level of C2. Differential diagnostic considerations include pharyngitis. Clinical correlation is recommended. Otherwise normal prevertebral soft tissue contour and thickness. IMPRESSION: 1. Borderline thickened prevertebral soft tissues at the level of C2. Differential diagnostic considerations include pharyngitis. Clinical correlation is recommended. Otherwise normal prevertebral soft tissue contour and thickness. 2. Mild disc degeneration at C6-C7. I would think this is some runaway muscle tension most likely. Cervicalgia unspecified. I suppose dissection is in differential. Does not seem to be demonstrating sore throat. I am proposing soft collar to allow for some relaxation. Will give some exercises for stretching neck and upper back. Otherwise would probably benefit from a visit to the chiropractor or physical therapy. Did offer also anesthetic injection into these sore muscle groups and she would like to proceed with this. Pending bupivacaine Disc some potential benefit of this injection was done. Following cleansing with alcohol swab, was injected with a mm of bupivacaine into 2 sites the paracervical muscle where most uncomfortable. Is improved maybe a little bit on reassessment. Was also given a lidocaine patch. See patient discharge plan below If you think this lidocaine patch is helpful, can purchase more [id number]. Do pull down stretches few times a day is demonstrated. See handout for stretches also for the upper back. Can wear the soft collar as needed for comfort over this next week. Consider setting up an appointment with a chiropractor or doctor of Osteopathic Medicine -- locally I think Dr. Hernandez does some manipulations but might be hard to get in. Some manipulation might be helpful. Physical therapy would be helpful as well. Am prescribing prednisone and Flexeril and some tabs of Evans from [facility]. Can take up to 800 mg of ibuprofen or up to 1000 mg of acetaminophen per dose. Medical Records Medical records reviewed: Yes I reviewed the patient's medical records Discharge Plan Discharge Clinical Impression: Cervicalgia Patient Disposition: Home, Self-Care Condition: Stable Additional Instructions: If you think this lidocaine patch is helpful, can purchase more [id number]. Do pull down stretches few times a day is demonstrated. See handout for stretches also for the upper back. Can wear the soft collar as needed for comfort over this next week. Consider setting up an appointment with a chiropractor or doctor of Osteopathic Medicine -- locally I think Dr. Hernandez does some manipulations but might be hard to get in. Some manipulation might be helpful. Physical therapy would be helpful as well. Am prescribing prednisone and Flexeril and some tabs of Evans from [facility]. Can take up to 800 mg of ibuprofen or up to 1000 mg of acetaminophen per dose. Prescriptions: No Action omeprazole 20 mg capsule,delayed release(DR/EC) 20 mg PO QDAY methocarbamol 1,000 mg tablet 1,000 mg PO QHS Qty: 14 0RF Rx Instructions: Do not drive or operate heavy equipment until you know how this medication impacts you. methylprednisolone 4 mg tablets,dose pack See Rx Instructions PO PER PKG DIR Qty: 21 0RF Rx Instructions: PO PER PKG DIR. Recommend limiting ibuprofen use while taking steroids. gabapentin 100 mg capsule 100 mg PO Q8H PRN (Reason: pain) Qty: 14 0RF Rx Instructions: Do not drive or operate heavy equipment until you know how this medication impacts you. hydrocodone-acetaminophen 5-325 mg tablet 2 tab PO BID Qty: 6 0RF Follow Up/Referrals: GLORIA KWAN DO [Primary Care Provider] - Stand Alone Forms: [employer] Info Instructions
[2024-05-20] MEDS: BUPIVACAINE 0.25% 30 ML 10 ML INJECTION (08:35)
--- OUTSIDE RECORDS SUMMARY | 2024-05-20 09:02 | XMS_ITS | Clinical Summary ---
Author Organization [facility] Address [address] [address] Care Team Providers Care Spiral Machine Operator Name Role Phone Unassigned, Provider Primary Care Provider Unava ilable Source Comments You are receiving this document as you are listed as the primary care provider,follow-up provider, or the patient has been referred to you for consultation.This is in compliance with the Medicare and[facility] EHR Incentive Program,which states Providers who transition their patient to another setting of careor provider of care or refers their patient to another provider of care shouldprovide summary care record for each transition of care or referral. [facility] Allergies No known active allergies Medications Medication Sig Dispensed Refills Start Date End Date Status venlafaxine (EFFEXORXR) 75 MG 24 hour release capsule Take 75 mg by mouth daily. Active omeprazole (PRILOSEC) 10 MG capsule Take 10 mg by mouth daily. Take 1 hour before a meal. Active levothyroxine (SYNTHROID) 75 MCG tablet Take 75 mcg by mouth daily. Active acetaminophen-codeine (TYLENOL NO. . 3) 300-30 MG tablet Take 1-2 Tabs by mouth every 4 hours as needed. 20 Tab 12/22/2016 Active Active Problems No known active problems Social History Tobacco Use Types Packs/Day Years Used Date Smoking Tobacco: Every Day Cigarettes Sex and Gender Information Value Date Recorded Sex Assigned at Not on file Gender Identity Not on file Sexual Orientation Not on file Last Filed Vital Signs Vital Sign Reading Time Taken Comments Blood Pressure - - Pulse - - Temperature 36.4 C (97.5 F) 12/22/2016 12:03 PM CDT Respiratory Rate - - Oxygen Saturation - - Inhaled Oxygen Concentration - - Weight 104.3 kg (230 lb) 12/22/2016 12:03 PM CDT Height 160 cm (5' 3) 12/22/2016 12:03 PM CDT Body Mass Index 40.74 12/22/2016 12:03 PM CDT Plan of Treatment Health Maintenance Due Date Last Done Comments Cervical Cancer Screening Due 1983 Hep C Screening (Preventive Services) 1983 Mammogram 1983 HIV Screening (Preventive Services) 1999 Adult Preventive Visit 2001 DTaP/Tdap/Td (1 - Tdap) 2002 HepB (1) 2002 COVID-19 Vaccine ( - 2023-2 5 season) 2024 Influenza (#1) 2024 Zoster/Shingles (1 of 2) 2033 HPV Vaccine Aged Out No longer eligi ble based on patient's age to complete this topic HepA Aged Out No longer eligi ble based on patient's age to complete this topic Hib Aged Out No longer eligi ble based on patient's age to complete this topic IPV (Polio) Aged Out No longer eligi ble based on patient's age to complete this topic RSV Aged Out No longer eligi ble based on patient's age to complete this topic MCV4 Aged Out No longer eligi ble based on patient's age to complete this topic Pneumococcal Aged Out No longer eligi ble based on patient's age to complete this topic Care Teams Spiral Machine Operator Relationship Specialty Start Date End Date Unassigned, Provider [address] [place] [id number] PCP - General 04/01/00
--- OUTSIDE RECORDS SUMMARY | 2024-05-20 09:02 | XMS_ITS | Continuity of Care Document ---
Author Organization [facility] Address [address] [place] [address] Phone Care Team Providers Care Stunt Man Name Role Phone Kwame Smith MD Unavailable Unavailable Medications Medication Instructions Dosage Effective Dates (start - stop) Status Comments OMEPRAZOLE (unknown strength) Not Available - Active LEVOTHYROXINE SODIUM (unknown strength) Not Available - Active VENLAFAXINE HCL (unknown strength) Not Available - Active Procedures Procedure Date Office/Outpatient Visit,[facility] [place] Advance Directives Directive Yes / No Effective Date File Name No Information Encounters Encounter Description Practice Location Reason(s) For Visit Diagnoses Date Provider Providers Copied on Encounter [facility], [address], [facility] [place] [id number], [place] tel:[phone] [facility] No Information 9 Sarah Puente. [facility], [address] [place] [address], [facility] [address], [place], [place], [id number] , [place]. [phone] Office/Outpat ient Visit,[facility], [address], [place], [id number], [place] tel:[phone] [facility] [place] Other intervertebral disc degeneration, lumbar region 9 Iván Hernandez. [facility], [address] [place] [address] [address], [place], [place], [id number] , [place]. [phone] Referring Provider: Karson Zavala, [employer] [facility] [address], [place], [address]. tel:[phone] [facility], [address], [place], [id number], [place] tel:[phone] [facility] [place] Low back pain Mateus Moore. [facility], [address], [place], [address], [place]. tel:[phone] Family History Family Member Type Diagnosis Age At Onset No Information Payers Payer name Insurance type Covered alliance party ID Authoriza tion(s) No Information Social History [...]
--- OUTSIDE RECORDS SUMMARY | 2024-05-20 09:02 | XMS_ITS | Clinical Summary ---
Author Organization [facility] Address [place], [place] [address] Care Team Providers Care Cargo Operations Agent Name Role Phone Cricket Gonzalez MD Unavailable [phone] Hilda York MD Unavailable [phone] Mando Anglin MD Unavailable [phone] Pricila Borja RN Unavailable [phone] Lucila Suggs DO Primary Care Provider [phone] Allergies Active Allergy Reactions Criticality Noted Date Comments Ciprofloxacin Rash Low 09/02/2006 vaginal and rectal rash Estradiol Other - Describe In Comment Field 09/16/2017 ALLERGY TO ORTH TRI CYCLEN - REACTION: Hydrocodone Nausea Only 11/09/2015 Norgestimate-Ethinyl Estradiol 09/02/2006 Medications Medication Sig Dispensed Refills Start Date End Date Status omeprazole (PRILOSEC) 20 mg Delayed-Release capsuleIndications:G astroesophageal reflux disease without esophagitis Take 1 Capsule (20 mg) by mouth once daily before a meal. 90 Capsule 3 04/15/2022 Active valACYclovir (VALTREX) 1 gram tablet Take 1 g by mouth three times daily. 08/25/2022 Active meclizine (ANTIVERT) 12.5 mg tabletIndications:Ve rtigo Take 1-2 Tablets (12.5-25 mg) by mouth 3 times daily if needed for Vertigo. 30 Tablet 08/29/2022 Active buPROPion (WELLBUTRIN XL) 150 mg Extended-Release tabletIndications:An xiety and depression,Adjustmen t disorder with mixed anxiety and depressed mood Take 1 Tablet (150 mg) by mouth every morning. 90 Tablet 09/24/2022 Active levothyroxine (SYNTHROID) 150 mcg tabletIndications:Hy pothyroidism, unspecified type Take 1 Tablet (150 mcg) by mouth before breakfast. 90 Tablet 09/24/2022 Active clotrimazole (LOTRIMIN) 1 % creamIndications:Int ertriginous candidiasis APPLY TOPICALLY TO AFFECTED AREAS TWO TIMES DAILY 45 g 1 03/05/2023 Active Active Problems Patient Care Coordination No te Formatting of this note is d ifferent from the original. Weight Management - Adult Surgical Program Initial Consult 10/01/2017 Dr. Mando Anglin Intake: Wt Readings from Last 1 Encounters: 10/01/17 125.6 kg (276 lb 14.4 oz) lbs Planned Operation Sleeve Gastrectomy Payor: DANIA MA / Plan: MARIA MA / Product Type: *No Product type* / Est. Pgm Completion: March, Procedure Location: [employer] Co-morbidities: To be determined Orders: Labs Yes Imaging N/A, Abdominal Ultrasound, Upper GI X-Ray, EGD and Bone Density Test. Pre-Surgery Program Consults: - Registered Dietitian 6 - Psychological Evaluation: Dr. Shantel Long or Dr. Nikita Ny Referrals: Yes - Sleep Medicine for CHUCK work-up: - Hematology: - Gastroenterology: - Cardiology: - PT: -Tobacco Cessation: Smoker -Dental: Problem Noted Date Diagnosed Date Controlled substance agreement signed 06/03/2018 Overview (06/03/2018): Jeyson TORRES [facility] Andreia Fay CMA 06/03/2018 11:32 AM Cervical radiculopathy 07/20/2017 Mixed stress and urge urinary incontinence 02/23 H/O renal calculi 02/11/2017 Neck pain, chronic; acutely radiating down the R ight arm 01/30/2017 Chronic bilateral low back pain with right-sided sciatica 01/30/2017 PTSD (post-traumatic stress disorder) 08/20/2016 Overview (08/20/2016): Started in 2000. Morbid obesity with BMI of 45.0-49.9, adult 03/31 Anxiety and depression 10/17/2015 Overview (08/20/2016): Started in 2000 Hypothyroidism 05/21/2015 Left knee pain 03/30/2015 Depressive disorder, not elsewhere classified Posttraumatic stress disorder 05/22/2014 Adjustment disorder with mixed anxiety and depre ssed mood 03/27/2014 Sebaceous cyst 12/28/2013 RH Negative 05/31/2007 Resolved Problems Problem Noted Date Diagnosed Date Resolved Date r/o Posttraumatic stress disorder 04/28/2014 05/22/2014 Encounters Date Type Department Care Team Description 03/01/2024 4:40 PM CDT Telemedicine [facility] [address] [place] [address] Stephania García NP Telehealth (/Bacterial infection in vagina area very uncomfortable when I use the bathroom and yeast in the creases of my thigh by néstor area /No vitals taken -virtual visit./) 03/01/2024 Travel from Last 3 Months Immunizations Name Administration [...] Types Packs/Day Years Used Date Smoking Tobacco: Former Cigarettes 0 01/18/2002 - 04/21/2022 Smokeless Tobacco: Never Tobacco Cessation:Counseling Given: Yes Comments:2-3 per week Alcohol Use Standard Drinks/Week Comments No 0 (1 standard drink = 0.6 oz pur e alcohol) PHQ-2 Answer Date Recorded PHQ-2 TOTAL SCORE 5 10/15/2021 Social Connections Answer Date Recorded Frequency of Communication with Friends and Fami ly Not on file 10/14/2022 Financial Resource Strain Answer Date R ecorded Difficulty of Paying Living Expenses 3 10/09/2021 Difficulty of Paying Living Expenses Not on file 10/09/2021 Food Insecurity Answer Date Recorded Worried About Running Out of Food in the Last Ye ar 1 10/09/2021 Transportation Needs Answer Date Record ed Lack of Transportation (Medical) 1 10/09/2021 Housing Stability Answer Date Recorded Unable to Pay for Housing in the Last Year 1 10/09/2021 Sex and Gender Information Value Date Recorded Sex Assigned at Not on file Gender Identity Not on file Sexual Orientation Not on file Obstetrics History Para Term AB IAB SAB Ectopic Multiple Livin g Live Births 3 3 3 Date Outcome GA Total Labor Labor/2nd/3rd Weight Sex Type Anes PTL Iza A1 A5 Name Clin Term Term Term Last Filed Vital Signs Vital Sign Reading Time Taken Comments Blood Pressure 108/74 09/24/2022 3:58 PM CDT Pulse 83 09/24/2022 3:58 PM CDT Temperature 36.7 C (98 F) 08/29/2022 11:06 AM MOTION PICTURE FILM EXAMINER Respiratory Rate 18 05/18/2020 3:26 PM MOTION PICTURE FILM EXAMINER Oxygen Saturation 96% 09/24/2022 3:58 PM CDT Inhaled Oxygen Concentration - - Weight 120.5 kg (265 lb 9.6 oz) 09/24/2022 3:58 PM CDT Height 161.2 cm (5' 3.47) 06/11/2021 3:28 PM CS T Body Mass Index 46.36 06/11/2021 3:28 PM MOTION PICTURE FILM EXAMINER Plan of Treatment Health Maintenance Due Date Last Done Comments Tetanus booster 03/10/2022 03/10/2012, 12/29/1995 BMI (ht and wt on same day) for age 18+ 06/11/2022 06/11/2021, 04/10/2021, 01/18/2021, Additional history exists Depression screening for age 12+ 10/17/2022 10/17/2021, 06/11/2021, 04/10/2021, Additional history exists Pap test for age 21-65 05/26/2023 8, 05/26/2018, 05/21/2015, Additional history exists COVID-19 vaccine series ( season) 2024 07/26/2021, 10/19/2020, 09/29/2020 Influenza for age 9-49 02/28/2024 05/21/2004 Tdap Completed 03/10/2012 Hepatitis C screening for age 18-79 Completed 12/26/2014, 06/01/2013 HIV for age 15-65 Completed 05/26/2018, , 10/17/2015, Additional history exists Pneumococcal series for age 6-64 Aged Out No longer eligible based on patient's age to complete this topic Medical Devices Implanted Type Area Specialty Manufacturing Supervisor Device Identifier Shelf Expiration Date Model / Serial / Lot Stent [id number] [id number] - [id number] Implanted:Qty: 1 on 03/05/2017 by Cricket Gonzalez MD at [facility] Right: [employer] Jessica 06/24/2019 [id number] / / [id number] Procedures Procedure Name Priority Date/Time Associated Diagnosis Comments ANTI HIV 1/2 Routine 05/26/2018 9:32 AM MOTION PICTURE FILM EXAMINER Routine screening for STI (sexually transmitted infection) AD OPERATIONS COORDINATOR THIN PREP PAP SCREEN IMAGED Routine 05/26/2018 9:11 AM MOTION PICTURE FILM EXAMINER Pap smear for cervical cancer screening ANTI HCV Routine 12/26/2014 11:36 AM CDT Screen for STD (sexually transmitted disease) from Last 3 Months or Most Recently Relevant to Health Maintenance Results * ANTI HIV 1/2 (05/26/2018 9:32 AM MOTION PICTURE FILM EXAMINER) HIV-1/HIV-2 ANTIBODY Non-Reacti ve Non-Reacti ve 05/26/2018 5:07 PM MOTION PICTURE FILM EXAMINER [facility] Comment:HIV-1 p24 and HIV-1/ HIV-2 Ab not detected. Blood BLOOD SPECIMEN / Unknown Venipuncture / Unknown 05/26/2018 9:32 AM MOTION PICTURE FILM EXAMINER 05/26/2018 9:33 AM MOTION PICTURE FILM EXAMINER Katlyn TORRES [facility] [address] [place] [address], * AD OPERATIONS COORDINATOR THIN PREP PAP SCREEN IMAGED (05/26/2018 9:11 AM MOTION PICTURE FILM EXAMINER) Case Report Gynecologic Cytology Report Case: [id number] Authorizing Provider: Katlyn Castrejon, Collected: 05/26/2018 0911 PA Ordering Location: [facility] Received: 05/26/2018 0929 Clinic First Screen: Michael Payne Specimen: AD OPERATIONS COORDINATOR ThinPrep Vial Screening, Cervical 06/04/2018 1:00 PM MOTION PICTURE FILM EXAMINER [facility] INTERPRETATION/ RESULT NEGATIVE FOR INTRAEPITHELIAL LESION OR MALIGNANCY (NIL) (none) 06/04/2018 1:00 PM MOTION PICTURE FILM EXAMINER [facility] NISM(S) Shift in rachelle suggestive of bacterial vaginosis 06/04/2018 1:00 PM MOTION PICTURE FILM EXAMINER [facility] SPECIMEN ADEQUACY Satisfactory for evaluation No endocervical component seen 06/04/2018 1:00 PM MOTION PICTURE FILM EXAMINER [facility] HPV REQUEST HPV and PAP 06/04/2018 1:00 PM MOTION PICTURE FILM EXAMINER [facility] Date of LMP unknown 06/04/2018 1:00 PM MOTION PICTURE FILM EXAMINER [facility] Last Pap Date 05/21/15 06/04/2018 1:00 PM MOTION PICTURE FILM EXAMINER [facility] Last Pap Result NIL 8 1:00 PM MOTION PICTURE FILM EXAMINER [facility] Abnormal Pap or [place] Bx in last 5 years No 06/04/2018 1:00 PM MOTION PICTURE FILM EXAMINER [facility] Menstrual Status Hysterectomy-cerv ix present 06/04/2018 1:00 PM MOTION PICTURE FILM EXAMINER [facility] [place] Bx Done Today No 06/04/2018 1:00 PM MOTION PICTURE FILM EXAMINER [facility] Additional Information None given 06/04/2018 1:00 PM MOTION PICTURE FILM EXAMINER [facility] Automated Review Successful 06/04/2018 1:00 PM MOTION PICTURE FILM EXAMINER [facility] Comment:Specimen processed s uccessfully by automated cheese cutter device, ThinPrep Imaging System, [employer] ANCILLARY TESTING AD OPERATIONS COORDINATOR HPV Ordered, Please see separate report 06/04/2018 1:00 PM [facility] Note The pap test is a screening technique, not a diagnostic procedure. It is used primarily to screen for squamous cancers and precursor lesions. Published studies have shown that it is subject to both false negative and false positive results. The pap test should not be used as the sole means to diagnose or exclude pre-malignant and malignant lesions. Cytology is screened and interpreted at [facility] - [address], [place] [address] and [facility] - [address]; [place] [address] and [facility] - [address]; [place] [address] and [facility] [address]; [place] [address] 06/04/2018 1:00 PM MOTION PICTURE FILM EXAMINER [facility] Other (Cervical) Non-Blood / Unknown 05/26/2018 9:11 AM MOTION PICTURE FILM EXAMINER 05/26/2018 9:29 AM MOTION PICTURE FILM EXAMINER Katlyn TORRES PATHOLOGY/CYT OLOGY [facility] [address] [place] [address], [place] * ANTI HCV (12/26/2014 11:36 AM CDT) HEPATITIS C ANTIBODY Non-Reacti ve Non-Reacti ve 12/26/2014 5:06 PM CDT [facility] Blood specimen (specimen) BLOOD SPECIMEN / Unknown Venipuncture / Unknown 12/26/2014 11:36 AM CDT 12/26/2014 11:36 AM CDT Narrative [facility] - 12/26/2014 5:06 PM CDT Antibodies to HCV not detected; does not exclude the possibility of exposure to HCV. Sheila TORRES [facility] [address] [place] [address], from Last 3 Months or Most Recently Relevant to Health Maintenance Advance Directives * Full Code (Latest Code Status on File) Date Activated Date Inactivated Comments 03/05/2017 9:17 PM 03/06/2017 2:00 PM * Full Code Date Activated Date Inactivated Comments 03/05/2017 11:34 AM 03/05/2017 9:15 PM Care Teams Cargo Operations Agent Relationship Specialty Start Date End Date Lucila Suggs DO [address] [place] [address] PCP - General Family Practice 09/24/22 Cricket Gonzalez MD Surgery - Urology 03/04/17 Hilda York MD [address] [place] [address] Obstetrics and Gynecology 03/04/17 Mando Anglin MD [address] [id number] Consulting Physician Surgery - General 10/01/17 Pricila Borja, YAMILE [address] [id number] Chemical Process Operator 10/01/17
--- OUTSIDE RECORDS SUMMARY | 2024-05-20 09:02 | XMS_ITS | Clinical Summary ---
Author Organization [facility] Address [address] [place] [address]. [place] [address] Care Team Providers Care Finisher Wallboard And Plasterboard Name Role Phone Joce Justin MD Primary Care Provider [phone] Allergies Active Allergy Reactions Criticality Noted Date Comments Ciprofloxacin Rash Low 09/16/2017 Estradiol Other (See Comments) 09/16/2017 ALLERGY TO ORTH TRI CYCLEN - REACTION: Hydrocodone Nausea 09/16/2017 Medications albuterol (PROAIR HFA/PROVENTIL HFA/VENTOLIN HFA) 108 (90 BASE) MCG/ACT Inhaler Inhale 2 puffs into the lungs every 4 hours as needed for shortness of breath / dyspnea or wheezing Active Levothyroxine Sodium (SYNTHROID PO) Take 75 mcg by mouth daily Active Omeprazole (PRILOSEC PO) Take 20 mg by mouth daily Active BusPIRone HCl (BUSPAR PO) Take 7.5 mg by mouth 2 times daily Active venlafaxine (EFFEXOR-XR) 150 MG 24 hr capsule Take 225 mg by mouth daily Active HYDROcodone-steven taminophen (NORCO) 5-325 MG per tabletIndicatio ns:Carpal tunnel syndrome of right wrist Take 1-2 tablets by mouth every 4 hours as needed for pain maximum 10 tablet(s) per day 10 tablet 8 Active oxyCODONE-aceta minophen (PERCOCET) 5-325 MG per tabletIndicatio ns:Carpal tunnel syndrome of right wrist Take 1-2 tablets by mouth every 6 hours as needed for severe pain maximum 6 tablet(s) per day 10 tablet 8 Active Social History Tobacco Use Types Packs/Day Years Used Date Smoking Tobacco: Some Days Cigarettes Smokeless Tobacco: Never Alcohol Use Standard Drinks/Week Comments Yes 0 (1 standard drink = 0.6 oz pur e alcohol) occasionally Comments No Sex and Gender Information Value Date Recorded Sex Assigned at Not on file Legal Sex Female 9:40 PM CDT Gender Identity Not on file Sexual Orientation Not on file Last Filed Vital Signs Vital Sign Reading Time Taken Comments Blood Pressure 123/76 09/17/2017 4:39 PM CDT Pulse - - Temperature 36.6 C (97.9 F) 09/17/2017 3:45 PM CDT Respiratory Rate 16 09/17/2017 4:39 PM CDT Oxygen Saturation 93% 09/17/2017 3:45 PM CDT Inhaled Oxygen Concentration - - Weight 123 kg (271 lb 1.6 oz) 09/17/2017 11:05 A M CDT Height 160 cm (5' 3) 09/17/2017 11:05 AM CDT Body Mass Index 48.02 09/17/2017 11:05 AM CDT Plan of Treatment Not on file Care Teams Finisher Wallboard And Plasterboard Relationship Specialty Start Date End Date Joce Justin MD PCP - General Family Practice 09/08/17
--- OUTSIDE RECORDS SUMMARY | 2024-05-20 09:02 | XMS_ITS | Referral Summary ---
Author Organization [facility] Address [address] [place] [address]. [place] [address] Care Team Providers Care Tongue Binder Name Role Phone Joce Justin MD Primary Care Provider [phone] Allergies Active Allergy Reactions Criticality Noted Date [...] of Treatment Not on file Care Teams Tongue Binder Relationship Specialty Start Date End Date Joce Justin MD PCP - General Family Practice 09/08/17
[2024-05-20] MEDS: LIDOCAINE 5% PATCH 1 PATCH TRANSDERMA (09:24)
== END 2024-05-20 09:33 | disposition home or self-care (01) ==
PROVIDERS: Emergency Provider Family Medicine; PCP Student in an Organized Health Care Education/Training Program
DX: M54.2 Cervicalgia (principal)
CPT/HCPCS: 72040; 99284; A9270; J0665

== ENCOUNTER 2025-04-04 17:41 | Outpatient (CLI) | payer MEDICAID, SELFPAY | END 2025-04-04 17:42 | disposition home or self-care (01) | LOC: NFLDUCREF 17:41 | PROVIDERS: PCP Student in an Organized Health Care Education/Training Program; Visit Provider Physician Assistant Surgical | DX: M25.571 Pain in right ankle and joints of right foot (principal) | CPT/HCPCS: 85379 ==

== ENCOUNTER 2025-04-04 19:57 | Emergency (ER) | payer MEDICAID, SELFPAY ==
--- OUTSIDE RECORDS SUMMARY | 2025-04-04 19:59 | XMS_ITS | Clinical Summary ---
Author Organization [facility] Address [address] [address] Care Team Providers Care School Bus Driver/Custodian Name Role Phone Unassigned, Provider Primary Care Provider Unava ilable Source Comments You are receiving this document as you are listed as the primary care provider,follow-up provider, or the patient has been referred to you for consultation.This is in compliance with the Medicare and[facility] Cent[facility]aid EHR Incentive Program,which states Providers who transition their patient to another setting of careor provider of care or refers their patient to another provider of care shouldprovide summary care record for each transition of care or referral. [facility] Allergies No known active allergies Medications venlafaxine (EFFEXORXR) 75 MG 24 hour release capsule Take 75 mg by mouth daily. Active omeprazole (PRILOSEC) 10 MG capsule Take 10 mg by mouth daily. Take 1 hour before a meal. Active levothyroxine (SYNTHROID) 75 MCG tablet Take 75 mcg by mouth daily. Active acetaminophen-co deine (TYLENOL NO. . 3) 300-30 MG tablet Take 1-2 Tabs by mouth every 4 hours as needed. 20 Tab 12/22/2016 Active Active Problems No known active problems Social History Tobacco Use Types Packs/Day Years Used Date Smoking Tobacco: Every Day Cigarettes Comments Unknown Sex and Gender Information Value Date Recorded Sex Assigned at Not on file Legal Sex Female 6:59 AM CDT Gender Identity Not on file Sexual [...] Services) 1999 Adult Preventive Visit 2001 DTaP/Tdap/Td Vaccine (1 - Tdap) 2002 HepB Vaccine (1) 2002 HPV Vaccine (1 - 3-dose SCDM series) 2010 COVID-19 Vaccine ( - 2023-2 5 season) 2025 Influenza Vaccine (#1) 2025 Zoster/Shingles Vaccine (1 of 2) 2033 HepA Vaccine Aged Out No longer eligi ble based on patient's age to complete this topic Hib Vaccine Aged Out No longer eligi ble based on patient's age to complete this topic IPV (Polio) Vaccine Aged Out No longe r eligible based on patient's age to complete this topic MCV4 Vaccine Aged Out No longer eligi ble based on patient's age to complete this topic Meningococcal B Vaccine Aged Out No l onger eligible based on patient's age to complete this topic Pneumococcal Vaccine Aged Out No long er eligible based on patient's age to complete this topic Care Teams School Bus Driver/Custodian Relationship Specialty Start Date End Date Unassigned, Provider [address] [place] [id number] PCP - General 04/01/00
--- OUTSIDE RECORDS SUMMARY | 2025-04-04 19:59 | XMS_ITS | Clinical Summary ---
Author Organization [facility] Address [address] [place] [address]. [place] [address] Care Team Providers Care Sheet Metal Mechanic Name Role Phone Joce Justin MD Primary Care Provider [phone] Allergies Active Allergy Reactions Criticality Noted Date [...] of Treatment Not on file Care Teams Sheet Metal Mechanic Relationship Specialty Start Date End Date Joce Justin MD PCP - General Family Practice 09/08/17
--- OUTSIDE RECORDS SUMMARY | 2025-04-04 19:59 | XMS_ITS | Clinical Summary ---
Author Organization [facility] Address [address] [place] [id number] Care Team Providers Care Parts Manager Name Role Phone Cricket Gonzalez MD Unavailable [phone] Hilda York MD Unavailable [phone] Mando Anglin MD Unavailable [phone] Pricila Borja RN Unavailable [phone] Latanya Hermosillo Primary Care Provider [phone] Allergies Active Allergy Reactions Criticality Noted Date Comments Ciprofloxacin Rash Low 09/02/2006 vaginal and rectal rash Estradiol Other - Describe In Comment Field 09/16/2017 ALLERGY TO ORTH TRI CYCLEN - REACTION: Norgestimate-Ethinyl Estradiol 09/02/2006 Medications valACYclovir (VALTREX) 1 gram tablet Take 1 g by mouth three times daily. 3 Active meclizine (ANTIVERT) 12.5 mg tabletIndications: Vertigo Take 1-2 Tablets (12.5-25 mg) by mouth 3 times daily if needed for Vertigo. 30 Tablet 3 Active clotrimazole (LOTRIMIN) 1 % creamIndications:I ntertriginous candidiasis APPLY TOPICALLY TO AFFECTED AREAS TWO TIMES DAILY 45 g 1 3 Active omeprazole (PRILOSEC) 20 mg Delayed-Release capsuleIndications :Gastroesophageal reflux disease without esophagitis Take 1 Capsule (20 mg) by mouth once daily before a meal. 90 Capsule 3 5 Active triamcinolone 0.1 % ointmentIndication s:Irritant contact dermatitis, unspecified trigger Apply topically to affected area(s) two times daily. 80 g 1 5 Active nystatin powder (MYCOSTATIN) powderIndications: Candidiasis, intertriginous Apply 1 Strip topically to affected area(s) 2 times daily if needed (tank). 60 g 2 5 Active levothyroxine (SYNTHROID) 100 mcg tabletIndications: Hypothyroidism, unspecified type Take 1 Tablet (100 mcg) by mouth before breakfast. 90 Tablet 3 5 Active Active Problems Patient Care Coordination No te Formatting of this note is d ifferent from the original. Weight Management - Adult Surgical Program Initial Consult 10/01/2017 Dr. Mando Anglin Intake: Wt Readings from Last 1 Encounters: 10/01/17 125.6 kg (276 lb 14.4 oz) lbs Planned Operation Sleeve Gastrectomy Payor: DANIA GOVEA / Plan: DANIA GOVEA / Product Type: *No Product type* / Est. Pgm Completion: March, Procedure Location: [place] Co-morbidities: To be determined Orders: Labs Yes [...] agreement signed 06/03/2018 Overview (06/03/2018): Jeyson TORRES [facility] Andreia Fay, LUIS 06/03/2018 11:32 AM Cervical radiculopathy 07/20/2017 Mixed [...] Encounters Date Type Department Care Team Description 02/15/2025 Travel from Last 3 Months Immunizations Immunization Administration Dates Next Due Influenza, IIV3 (Age [...] Smoking Tobacco: Former Cigarettes 0 01/18/2002 - 04/21/2023 Passive Smoke Exposure: Current Smokeless Tobacco: Never Tobacco Cessation:Counseling Given: Not Answered Passive Exposure Comments:When Mom visits and smokes outside Alcohol Use Standard Drinks/Week Comments No 0 (1 standard drink = 0.6 oz pur e alcohol) PHQ-2 Answer Date Recorded PHQ-2 TOTAL SCORE 3 11/23/2024 Social Connections Answer Date Recorded Do you often feel lonely or isolated from those around you? 0 07/13/2024 Financial Resource Strain Answer Date R ecorded Difficulty of Paying Living Expenses 3 07/13/2024 Difficulty of Paying Living Expenses Not on file 07/13/2024 Food Insecurity Answer Date Recorded Do you worry your food will run out before you are able to buy more? 1 07/13/2024 Transportation Needs Answer Date Record ed Does lack of transportation keep you from medica l appointments? 1 07/13/2024 Does lack of transportation keep you from work, meetings or getting things that you need? 1 07/13/2024 Housing Stability Answer Date Recorded What is your housing situation today? 1 07/13/2024 Utilities Answer Date Recorded Do you have trouble paying f or utilities (for example, heat, electricity, water, phone)? 1 07/13/2024 Comments No Sex and Gender Information Value Date Recorded Sex Assigned at Not on file Legal Sex Female 5:26 AM VERIFICATION LEAD Gender Identity Not on file Sexual Orientation Not on file Obstetrics History Para Term AB IAB SAB Ectopic Multiple Livin g Live Births 3 3 3 Date Outcome GA Total Labor Labor/2nd/3rd Weight Sex Type Anes PTL Iza A1 A5 Name Clin Term Term Term Last Filed Vital Signs Vital Sign Reading Time Taken Comments Blood Pressure 134/89 11/23/2024 7:39 AM CDT Pulse 87 11/23/2024 7:39 AM CDT Temperature 36.7 C (98 F) 08/29/2022 11:06 AM VERIFICATION LEAD Respiratory Rate 16 08/02/2024 3:38 PM VERIFICATION LEAD Oxygen Saturation 96% 11/23/2024 7:39 AM CDT Inhaled Oxygen Concentration - - Weight 122 kg (269 lb) 11/23/2024 7:39 AM CDT Height 160.7 cm (5' 3.25) 08/02/2024 3:38 PM CS T Body Mass Index 47.28 08/02/2024 3:38 PM VERIFICATION LEAD Plan of Treatment Health Maintenance Due Date Last Done Comments Hepatitis B series for 19+ (1 of 3 - 19+ 3-dose series) 2002 HPV series for age 9-45 (1 - 3-dose SCDM series) 2010 Tetanus booster 03/10/2022 03/10/2012, 12/29/1995 COVID-19 vaccine series ( season) 2025 07/26/2021, 10/19/2020, 09/29/2020 Influenza Vaccine (#1) 2025 05/21/2004 BMI (ht and wt on same day) for age 18+ 08/02/2025 08/02/2024, 07/14/2024, 06/11/2021, Additional history exists Depression screening for age 12+ 11/23/2025 11/23/2024, 07/14/2024, 10/17/2021, Additional history exists RSV vaccine for adults or (1 - 1-dose 75+ series) 2058 Hepatitis C screening for age 18-79 Completed 12/26/2014, 06/01/2013 HIV for age 15-65 Completed 05/26/2018, , 10/17/2015, Additional history exists Pneumococcal series for age 6-49 Aged Out No longer eligible based on patient's age to complete this topic Medical Devices Implanted Type Area Loan Broker Device Identifier Shelf Expiration Date Model / Serial / Lot Stent Uret [id number] Silhouette - [id number] Implanted:Qty: 1 on 03/05/2017 by Cricket Gonzalez MD at [facility] Right: [employer] 06/24/2019 [id number] / / [id number] Procedures Procedure Name Priority Date/Time Associated Diagnosis Comments ANTI HIV 1/2 Routine 05/26/2018 9:32 AM VERIFICATION LEAD Routine screening for STI (sexually transmitted infection) ANTI HCV Routine 12/26/2014 11:36 AM CDT Screen for STD (sexually transmitted disease) from Last 3 Months or Most Recently Relevant to Health Maintenance Results * ANTI HIV 1/2 (05/26/2018 9:32 AM VERIFICATION LEAD) HIV-1/HIV-2 ANTIBODY Non-Reacti ve Non-Reacti ve 05/26/2018 5:07 PM VERIFICATION LEAD [facility] Comment:HIV-1 p24 and HIV-1/ HIV-2 Ab not detected. Blood BLOOD SPECIMEN / Unknown Venipuncture / Unknown 05/26/2018 9:32 AM VERIFICATION LEAD 05/26/2018 9:33 AM VERIFICATION LEAD us Katlyn TORRES SEND OUTS Final Result [facility] [address] [place] [address], [place] * ANTI HCV (12/26/2014 11:36 AM CDT) HEPATITIS C ANTIBODY Non-Reacti ve Non-Reacti ve 12/26/2014 5:06 PM CDT [facility] Blood specimen (specimen) BLOOD SPECIMEN / Unknown Venipuncture / Unknown 12/26/2014 11:36 AM CDT 12/26/2014 11:36 AM CDT Narrative [facility] - 12/26/2014 5:06 PM CDT Antibodies to HCV not detected; does not exclude the possibility of exposure to HCV. us Sheila TORRES SEND OUTS Final Resu lt [facility] [address] [place] [address], from Last 3 Months or Most Recently Relevant to Health Maintenance Insurance [facility] [place] [employer] Advance Directives * Full Code (Latest Code Status on File) Date Activated Date Inactivated Comments 03/05/2017 9:17 PM 03/06/2017 2:00 PM * Full Code Date Activated Date Inactivated Comments 03/05/2017 11:34 AM 03/05/2017 9:15 PM Care Teams Parts Manager Relationship Specialty Start Date End Date Latanya Hermosillo PA [facility] [place] [address] PCP - General Physician Supervisor Wall [employer] Department 07/15/24 Cricket Gonzalez MD Surgery - Urology 03/04/17 Hilda York MD [address] [place] [id number] Obstetrics and Gynecology 03/04/17 Mando Anglin MD [address] [id number] Consulting Physician Surgery - General 10/01/17 Pricila Borja RN [address] [id number] Apartment Groundskeeper 10/01/17
--- NOTE | 2025-04-04 20:05 | CRLHL7_ITS ---
For Patients: As a result of the Century Cures Act, medical imaging exams and procedure reports are released immediately into your electronic medical record. You may view this report before your referring provider. If you have questions, please contact your health care provider. INDICATION: Leg pain and swelling. TECHNIQUE: Ultrasound venous duplex lower right extremity. Compression venous exam was performed using madden-scale, color Doppler, and spectral Doppler analysis. COMPARISON: None. FINDINGS: Deep veins: Sonographic imaging demonstrates the right common femoral, deep femoral, superficial femoral, popliteal, posterior tibial and the contralateral common femoral veins to be fully compressible with normal color Doppler blood flow. Superficial veins: Greater saphenous vein is fully compressible. No popliteal cyst. IMPRESSION: Normal right lower extremity venous ultrasound, no sign of deep venous thrombosis. Dictated by Bon Paul MD @ 04/04/2025 9:31:01 PM (Electronically Signed)
[2025-04-04 20:06] VITALS: BP 141/74; PULSE 72; RESP 16; TEMP 36.1; O2SAT 98
--- NOTE | 2025-04-04 20:13 | ED.GENADULT ---
HPI - General Adult General Time Seen by Provider: 20:13 Date Seen: 04/04/25 Chief complaint: Extremity Pain/Injury, Lower Stated complaint: Possible blood clot Time Seen by Provider: 04/04/25 20:13 Source: patient Mode of arrival: ambulatory History of Present Illness HPI narrative: Phuong is A 40-year-old female presents the emergency department for evaluation of leg pain. Patient complains of right lower extremity pain, swelling, and was sent over from urgent care for evaluation of a blood clot. Patient reports initially she noticed some pain to her right ankle on Thursday however denies any significant trauma or injury. Patient reports that on Thursday her ankle and her foot was sore and she noted she did have some difficulty walking as well as a charley horse sensation in her right calf. Patient reports right calf swelling. Patient went to urgent care prior to arrival and had x-rays of her ankle and foot which demonstrated some inflammation and swelling. Patient was placed into a walking boot and was referred to orthopedics. Patient reports no fracture or dislocation. Patient states that she had a D-dimer which is elevated so came in for ultrasound from urgent care. Patient denies any fever, chills, chest pain, shortness of breath, weakness, paresthesias, no history of prior blood clots, patient is not on chronic anticoagulation, is not on hormonal therapy, no recent prolonged immobilization, no history of cancer, no other complaints. Related Data Home Medications ?Medication ?Instructions ?Recorded ?Confirmed omeprazole 20 mg capsule,delayed 20 mg PO QDAY 03/14/23 04/04/25 release levothyroxine 100 mcg capsule 100 mcg PO QDAY 09/14/24 04/04/25 Allergies Allergy/AdvReac Type Severity Reaction Status Date / Time controls Allergy Uncoded 04/04/25 17:05 Review of Systems Narrative: Past medical history, past surgical history, medications, allergies, family history, and social history were reviewed with the patient. No additional pertinent items. A medically appropriate review of systems was performed with pertinent positives and negatives noted in HPI, all other systems negative. 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) Shingles ?B02.9 - Zoster without complications (ICD-10) Former smoker ?Z87.891 - Personal history of nicotine dependence (ICD-10) H/O renal calculi ?Z87.442 - Personal history of urinary calculi (ICD-10) Left knee pain ?M25.562 - Pain in left knee (ICD-10) Mixed stress and urge urinary incontinence ?N39.46 - Mixed incontinence (ICD-10) Posttraumatic stress disorder ?F43.10 - Post-traumatic stress disorder, unspecified (ICD-10) Adjustment disorder with mixed anxiety and depressed mood ?F43.23 - Adjustment disorder with mixed anxiety and depressed mood (ICD-10) Cervical radiculopathy ?M54.12 - Radiculopathy, cervical region (ICD-10) Chronic bilateral low back pain with right-sided sciatica ?M54.41 - Lumbago with sciatica, right side (ICD-10) ?G89.29 - Other chronic pain (ICD-10) Morbid obesity with BMI of 45.0-49.9, adult ?E66.01 - Morbid (severe) obesity due to excess calories (ICD-10) ?Z68.42 - Body mass index [BMI] 45.0-49.9, adult (ICD-10) Sebaceous cyst ?L72.3 - Sebaceous cyst (ICD-10) Controlled substance agreement signed ?Z79.899 - Other long term care administrator (current) drug therapy (ICD-10) Post hysterectomy menopause ?E89.40 - Asymptomatic postprocedural ovarian failure (ICD-10) ?Z90.710 - Acquired absence of both cervix and uterus (ICD-10) Depression ?F32.A - Depression, unspecified (ICD-10) Hypothyroidism ?E03.9 - Hypothyroidism, unspecified (ICD-10) Surgical History H/O section ?Z98.891 - History of uterine scar from previous surgery (ICD-10) History of cholecystectomy (~04/2004) ?Z90.49 - Acquired absence of other specified parts of digestive tract (ICD-10) Hx of appendectomy (~02/2005) ?Z90.49 - Acquired absence of other specified parts of digestive tract (ICD-10) H/O tubal ligation (12/27/07) ?Z98.51 - Tubal ligation status (ICD-10) History of bilateral carpal tunnel release (05/30/15) ?Z98.890 - Other specified postprocedural states (ICD-10) History of total abdominal hysterectomy (~2016) ?Z90.710 - Acquired absence of both cervix and uterus (ICD-10) S/P left rotator cuff repair (06/23/18) ?Z98.890 - Other specified postprocedural states (ICD-10) Social History Smoking Status: Current every day smoker What tobacco products do you use: cigarettes Do you use any of these nicotine containing products: None Second hand tobacco smoke exposure: Yes How often do you have a drink containing alcohol: never How often do you have six or more drinks on one occasion: Never AUDIT-C Alcohol total score: 0 Non-prescribed substance use: denies use service: No Exam Narrative: Exam Narrative: General: Afebrile, no acute distress HEENT: Normocephalic, atraumatic, conjunctiva normal. MMM Neck: non-tender, supple Cardio: regular rate. regular rhythm Resp: Normal work of breathing, no respiratory distress, lungs clear bilaterally, no wheezing, rhonchi, rales Chest/Back: no visual signs of trauma, no midline tenderness, no CVA tenderness Abdomen: soft, non distension, no tenderness, no peritoneal signs Neuro: alert and fully oriented. CN II-XII grossly intact. Grossly normal strength and sensation in all extremities. MSK: no deformities. Normal range of motion, +TTP right calf, right ankle, and heel of foot, distally NVI with dp and pt pulse present b/l, compartments soft,no erythema, not warm to touch Integumentary/Skin: no rash visualized, normal color Psych: normal affect, normal behavior Const: Vital Signs, click to edit/add: Vital Signs - 24 hr 04/04/25 20:06 Temperature 97.0 F L Pulse Rate [Right Pulse Oximeter] 72 Respiratory Rate 16 Blood Pressure [Ri ght Upper Arm] 141/74 H Pulse Oximetry 98 Oxygen Delivery Me thod Room Air Course Vital Signs Vital signs: Initial Vital Signs Temperature 97.0 F L 04/04/25 20:06 Temperature Source Temporal Artery Scan 04/04/25 20:06 Pulse Rate 72 04/04/25 20:06 Respiratory Rate 16 04/04/25 20:06 Blood Pressure 141/74 H 04/04/25 20:06 Blood Pressure Mean 96 04/04/25 20:06 Blood Pressure Position Semi-Fowlers 04/04/25 20:06 Pulse Oximetry 98 04/04/25 20:06 Oxygen Delivery Method Room Air 04/04/25 20:06 Vital Signs Temperature 97.0 F L 04/04/25 20:06 Pulse Rate 72 04/04/25 20:06 Respiratory Rate 16 04/04/25 20:06 Blood Pressure 141/74 H 04/04/25 20:06 Pulse Oximetry 98 04/04/25 20:06 Oxygen Delivery Method Room Air 04/04/25 20:06 Temperature 97.0 F L 04/04/25 20:06 Pulse Rate 72 04/04/25 20:06 Respiratory Rate 16 04/04/25 20:06 Blood Pressure 141/74 H 04/04/25 20:06 Pulse Oximetry 98 04/04/25 20:06 Oxygen Delivery Method Room Air 04/04/25 20:06 Medications Administered Medications: Generic Name Dose Route Start Last Admin Trade Name Freq PRN Reason Stop Dose Admin Acetaminophen 1,000 mg 04/04/25 21:03 04/04/25 21:07 Acetaminophen 500 Mg Tablet PO 04/04/25 21:04 1,000 mg ONCE ONE Administration Medical Decision Making MDM Narrative Medical decision making narrative: Phuong is A 40-year-old female presents the emergency department for evaluation of leg pain. Upon arrival patient is nontoxic appearing, afebrile, in distress secondary to pain. Patient hemodynamically stable vital signs within normal limits. Differential diagnosis includes but is not limited to inflammatory versus less likely fracture / dislocation as patient just had negative x-rays prior to arrival, popliteal cyst versus blood clot versus musculoskeletal among others. Patient was treated with Tylenol ( took ibuprofen prior to arrival) and right lower extremity ultrasound was Performed. I personally reviewed interpreted ultrasound of the right lower extremity which demonstrates no evidence of DVT, no evidence of popliteal cyst. Unremarkable ultrasound. I discussed results with patient. At this time I recommend continue supportive care with rest, ice, elevation, Tylenol, ibuprofen, weight-bearing as tolerated. Patient already has referral to Orthopedics. Recommend close outpatient follow-up with primary care provider/ Orthopedics. Strict return precautions discussed. Patient understands and agrees the plan. Imaging Data Venous US: Attestation: I have reviewed the pertinent imaging results. Radiologist's impression: Service Date: 04/04/[address]: Ordering Physician: Yariel Lawler M.D. Date of Service: 04/04/25 Procedure(s): US venous LE RT Accession Number(s): [id number] cc: Yariel Lawler M.D.; GLORIA KWAN D.O.~ For Patients: As a result of the Cures Act, medical imaging exams and procedure reports are released immediately into your electronic medical record. You may view this report before your referring provider. If you have questions, please contact your health care provider. INDICATION: Leg pain and swelling. TECHNIQUE: Ultrasound venous duplex lower right extremity. Compression venous exam was performed using madden-scale, color Doppler, and spectral Doppler analysis. COMPARISON: None. FINDINGS: Deep veins: Sonographic imaging demonstrates the right common femoral, deep femoral, superficial femoral, popliteal, posterior tibial and the contralateral common femoral veins to be fully compressible with normal color Doppler blood flow. Superficial veins: Greater saphenous vein is fully compressible. No popliteal cyst. IMPRESSION: Normal right lower extremity venous ultrasound, no sign of deep venous thrombosis. Discharge Plan Discharge Clinical Impression: Lower extremity pain, right Patient Disposition: Home, Self-Care Condition: Stable Additional Instructions: Please follow up with your primary care provider in the next 3-5 days for further evaluation ad follow up. please call to schedule an appointment. please follow-up with orthopedics as previously directed. Please alternate taking Tylenol 1000 mg and ibuprofen 600 mg every 6 hours as needed for pain, swelling. Please wear boot for comfort, please elevate your lower extremity while at rest. Please return to the emergency department if you develop severe pain, significant increase in swelling, persistent high fever, worsening symptoms. It was a pleasure taking care of you today. We hope you feel better soon. Prescriptions: No Action omeprazole 20 mg capsule,delayed release(DR/EC) 20 mg PO QDAY levothyroxine 100 mcg capsule 100 mcg PO QDAY Follow Up/Referrals: GLORIA KWAN DO [Primary Care Provider, Family Practice] Stand Alone Forms: My Dentist Info Instructions
[2025-04-04] MEDS: ACETAMINOPHEN 500 MG TABLET 1000 MG PO (21:07)
[2025-04-04 22:26] VITALS: BP 121/72; PULSE 62; RESP 16; O2SAT 94
== END 2025-04-04 22:37 | disposition home or self-care (01) ==
LOC: ED 21:49
PROVIDERS: Emergency Provider Emergency Medicine; PCP Student in an Organized Health Care Education/Training Program
DX: M79.661 Pain in right lower leg (principal)
CPT/HCPCS: 93971; 99283; 99285; A9270

== ENCOUNTER 2025-05-02 23:52 | Emergency (ER) | payer MEDICAID, SELFPAY ==
--- OUTSIDE RECORDS SUMMARY | 2025-05-02 23:54 | XMS_ITS | Clinical Summary ---
Author Organization [facility] Address [address] [place] [address]. [place] [address] Care Team Providers Care Novelty Candy Maker Name Role Phone Joce Justin MD Primary Care Provider [phone] Allergies Active Allergy Reactions Criticality Noted Date [...] of Treatment Not on file Care Teams Novelty Candy Maker Relationship Specialty Start Date End Date Joce Justin MD PCP - General Family Practice 09/08/17
--- OUTSIDE RECORDS SUMMARY | 2025-05-02 23:54 | XMS_ITS | Clinical Summary ---
Author Organization [facility] Address [address], [place] [address] Care Team Providers Care Health Center Manager Name Role Phone Unassigned, Provider Primary Care Provider Unava ilable Source Comments You are receiving this document as you are listed as the primary care provider,follow-up provider, or the patient has been referred to you for consultation.This is in compliance with the Medicare and[facility] EHR Incentive Program,which states Providers who transition their patient to another setting of careor provider of care or refers their patient to another provider of care shouldprovide summary care record for each transition of care or referral. [facility] Allergies No known active allergies Medications venlafaxine [...] age to complete this topic Care Teams Health Center Manager Relationship Specialty Start Date End Date Unassigned, Provider [address] [place] [id number] PCP - General 04/01/00
--- OUTSIDE RECORDS SUMMARY | 2025-05-02 23:54 | XMS_ITS | Clinical Summary ---
Author Organization [facility] Address [address] [place] [id number] Care Team Providers Care Plumber'S Helper Name Role Phone Cricket Gonzalez MD Unavailable [phone] Hilda York MD Unavailable [phone] Mando Anglin MD Unavailable [phone] Pricila Borja RN Unavailable [phone] Latanya Hermosillo Primary Care Provider [phone] Allergies Active Allergy Reactions Criticality Noted Date Comments Ciprofloxacin Rash Low 09/02/2006 vaginal and rectal rash Estradiol Other - Describe In Comment Field 09/16/2017 ALLERGY TO ORTH TRI CYCLEN - REACTION: Norgestimate-Ethinyl Estradiol 09/02/2006 Medications valACYclovir (VALTREX) 1 gram tablet Take 1 g by mouth three times daily. 08/25/19 23 Active clotrimazole (LOTRIMIN) 1 % creamIndications: Intertriginous candidiasis APPLY TOPICALLY TO AFFECTED AREAS TWO TIMES DAILY 45 g 1 03/05/20 23 Active omeprazole (PRILOSEC) 20 mg Delayed-Release capsuleIndication s:Gastroesophagea l reflux disease without esophagitis Take 1 Capsule (20 mg) by mouth once daily before a meal. 90 Capsule 3 07/14/19 25 Active triamcinolone 0.1 % ointmentIndicatio ns:Irritant contact dermatitis, unspecified trigger Apply topically to affected area(s) two times daily. 80 g 1 07/14/19 25 Active nystatin powder (MYCOSTATIN) powderIndications :Candidiasis, intertriginous Apply 1 Strip topically to affected area(s) 2 times daily if needed (tank). 60 g 2 07/14/19 25 Active methylPREDNISolon e (Medrol (Shawn)) 4 mg tabletIndications :Inflammatory heel pain, right Take by mouth as instructed per packaging. 21 Tablet 04/10/20 25 Active levothyroxine (SYNTHROID) 125 mcg tabletIndications :Other specified hypothyroidism Take 1 Tablet (125 mcg) by mouth before breakfast. 90 Tablet 3 04/11/20 25 Active meclizine (ANTIVERT) 12.5 mg tabletIndications :Vertigo Take 1-2 Tablets (12.5-25 mg) by mouth 3 times daily if needed for Vertigo. 30 Tablet 08/30/19 23 025 Discontin ued(*Med complete/ Regimen complete/ Level of care change) levothyroxine (SYNTHROID) 100 mcg tabletIndications :Hypothyroidism, unspecified type Take 1 Tablet (100 mcg) by mouth before breakfast. 90 Tablet 3 07/15/19 25 025 Discontin ued(*Medi cation adjustmen t) clindamycin (CLEOCIN) 2 % vaginal creamIndications: Bacterial vaginosis Insert 1 Applicatorful into the vagina at bedtime for 7 days. 40 g 04/11/20 25 025 Active Problems Patient Care Coordination No te Formatting of this note is d ifferent from the original. Weight Management - Adult Surgical Program Initial Consult 10/01/2017 Dr. Mando Anglin Intake: Wt Readings from Last 1 Encounters: 10/01/17 125.6 kg (276 lb 14.4 oz) lbs Planned Operation Sleeve Gastrectomy Payor: DANIA GOVEA / Plan: MARIA MA / Product Type: *No Product type* / Est. Pgm Completion: March, Procedure Location: [address] [place] Co-morbidities: To be determined Orders: Labs Yes [...] agreement signed 06/03/2018 Overview (06/03/2018): Jeyson TORRES [facility] Andreia Fay, BUSINESS RULES DEVELOPER 06/03/2018 11:32 AM Cervical radiculopathy 07/20/2017 Mixed [...] Encounters Date Type Department Care Team Description 04/10/2025 11:10 AM CDT Office Visit [facility] [address] [place] [address] Latanya Hermosillo PA Screening (Wants to be tested for STI's -last with partner 3 weeks ago-he has cheated); Foot Pain/problem (Went to urgent care, sent to ER for right foot pain-got US-no blood clot but has inflammation) 04/10/2025 Travel 04/07/2025 Travel 04/04/2025 Orders Only [facility] Scanner 1 scan: (1-Ord) HAM CHAIDEZ LE RT, 04/04/2025 02/15/2025 Travel from Last 3 Months Immunizations [...] on file Legal Sex Female 5:26 AM TECHNICAL PROGRAM MANAGER Gender Identity Not on file Sexual Orientation Not on file Obstetrics History Para Term AB IAB SAB Ectopic Multiple Livin g Live Births 3 3 3 Date Outcome GA Total Labor Labor/2nd/3rd Weight Sex Type Anes PTL Iza A1 A5 Name Clin Term Term Term Last Filed Vital Signs Vital Sign Reading Time Taken Comments Blood Pressure 115/77 04/10/2025 11:18 AM CDT Pulse 77 04/10/2025 11:18 AM CDT Temperature 36.7 C (98 F) 08/29/2022 11:06 AM TECHNICAL PROGRAM MANAGER Respiratory Rate 16 08/02/2024 3:38 PM TECHNICAL PROGRAM MANAGER Oxygen Saturation 96% 04/10/2025 11:18 AM CDT Inhaled Oxygen Concentration - - Weight 121.6 kg (268 lb) 04/10/2025 11:18 AM CDT Height 160.7 cm (5' 3.25) 08/02/2024 3:38 PM CS T Body Mass Index 47.1 08/02/2024 3:38 PM TECHNICAL PROGRAM MANAGER Plan of Treatment Health Maintenance Due Date Last Done Comments Hepatitis B series for 19+ (1 of 3 - 19+ 3-dose series) 2002 HPV series for age 9-45 (1 - 3-dose SCDM series) 2010 Tetanus booster 03/10/2022 03/10/2012, 12/29/1995 Influenza Vaccine (#1) 2025 05/21/2004 BMI (ht and wt on same day) for age 18+ 08/02/2025 08/02/2024, 07/14/2024, 06/11/2021, Additional history exists Depression screening for age 12+ 11/23/2025 11/23/2024, 07/14/2024, 10/17/2021, Additional history exists RSV vaccine for adults or (1 - 1-dose 75+ series) 2058 HIV for age 15-65 Completed 04/10/2025, , 02/01/2018, Additional history exists Hepatitis C screening for age 18-79 Completed 04/10/2025, 12/26/2014, 06/01/2013 Pneumococcal series for age 6-49 Aged Out No longer eligible based on patient's age to complete this topic Medical Devices Implanted Type Area Theatrical Dresser Device Identifier Shelf Expiration Date Model / Serial / Lot Stent Uret [id number] [facility] [id number] Implanted:Qty: 1 on 03/05/2017 by Cricket Gonzalez MD at [facility] Right: [employer] Jessica 06/24/2019 [id number] / / [id number] Procedures Procedure Name Priority Date/Time Associated Diagnosis Comments ANTI HIV 1/2 Routine 04/10/2025 12:23 PM CDT Screen for STD (sexually transmitted disease) TREPONEMA PALLIDUM Routine 04/10/2025 12 :23 PM CDT Screen for STD (sexually transmitted disease) ANTI HCV Routine 04/10/2025 12:23 PM CDT Screen for STD (sexually transmitted disease) TSH Routine 04/10/2025 12:23 PM CDT Hypothyroidism (acquired) GC CHLAMYDIA TRACH PROBE Routine 04/10/2025 11:55 AM CDT Screen for STD (sexually transmitted disease) TRICHOMONAS, TANK, AND BACTERIAL VAGINOSIS BY MARYAN Routine 04/10/2025 11:55 AM CDT Screen for STD (sexually transmitted disease) SCAN-ULTRASOUND REPORT 04/04/2025 12:00 AM CDT from Last 3 Months Results * TREPONEMA PALLIDUM (04/10/2025 12:23 PM CDT) Pathologist [facility] TREPONEMA PALLIDUM Non-Reacti ve Non-Reacti ve 04/10/2025 11:36 PM CDT [facility] Blood BLOOD SPECIMEN / Unknown [facility] / Unknown 04/10/2025 12:23 PM CDT 04/10/2025 12:23 PM CDT us Latanya TORRES SEND OUTS [facility] [address] [place] [address], * (ABNORMAL) TSH (04/10/2025 12:23 PM CDT) TSH 13.17(H) mIU/L 04/11/2025 6:40 AM CDT [facility] Comment: Reference Range > or = 20 Years 0.40-4.50 Ranges First trimester 0.26-2.66 Second trimester 0.55-2.73 Third trimester 0.43-2.91 Blood BLOOD SPECIMEN / Unknown [facility] / Unknown 04/10/2025 12:23 PM CDT 04/10/2025 12:23 PM CDT Latanya TORRES CHEMISTRY Final Resu lt Performing Organization Address [facility] de Phone Number [facility] [address] [address], * ANTI HCV (04/10/2025 12:23 PM CDT) Pathologist [facility] HEPATITIS C ANTIBODY NON-REACT HAMZAH NON-REACT HAMZAH 04/11/2025 1:31 PM CDT [facility] Comment: HCV antibody was non-reactive. There is no laboratory evidence of HCV infection. In most cases, no further action is required. However, if recent HCV exposure is suspected, a test for HCV RNA (test code 18073) is suggested. For additional information please refer to http://education.[employer]/faq/HMV07u5 (This link is being provided for informational/ educational purposes only.) Blood BLOOD SPECIMEN / Unknown [facility] / Unknown 04/10/2025 12:23 PM CDT 04/10/2025 12:23 PM CDT Latanya TORRES SEND OUTS Final Resu lt Performing Organization Address [facility] de Phone Number [employer] [facility] [address] [address], * ANTI HIV 1/2 (04/10/2025 12:23 PM CDT) Pathologist [facility] HIV FINAL INTERPRETATOIN HIV NEGATIVE 04/11/2025 1:27 PM CDT [employer] [facility] Comment: HIV-1 antigen and HIV-1/HIV-2 antibodies were not detected. There is no laboratory evidence of HIV infection. HIV AG/AB, 4TH GEN NON-REACTIV E NON-REAC TIVE 04/11/2025 1:27 PM CDT [facility] Blood BLOOD SPECIMEN / Unknown [facility] / Unknown 04/10/2025 12:23 PM CDT 04/10/2025 12:23 PM CDT Latanya TORRES SEND OUTS Final Resu lt [facility] [address] [address], [place] [phone] * (ABNORMAL) TRICHOMONAS, TANK, AND BACTERIAL VAGINOSIS BY MARYAN (04/10/2025 11:55 AM CDT) TANK SPECIES Negative Negative 12:17 PM CDT [facility]AL [facility] TANK GLABRATA Negative Negative 04/11/2025 12:17 PM CDT [facility] TRICHOMONAS VVA Negative Negative 12:17 PM CDT [facility] BACTERIAL VAGINOSIS Positive(A) Negative 04/11/2025 12:17 PM CDT [facility] Other VAGINAL SWAB / Unknown Non-Blood / Unknown 04/10/2025 11:55 AM CDT 04/10/2025 1:31 PM CDT Latanya TORRES MICROBIOLOGY Final Resu lt [facility] [address] [place] [address], [place] * GC & CHLAMYDIA DNA PCR [[id number]] (04/10/2025 11:55 AM CDT) CHLAMYDIA PROBE Negative 12:39 PM CDT [facility] N GONORRHOEAE PROBE Negative 04/11/2025 12:39 PM CDT [facility] Other VAGINAL SWAB / Unknown Non-Blood / Unknown 04/10/2025 11:55 AM CDT 04/10/2025 1:31 PM CDT us Latanya TORRES MICROBIOLOGY Final Resu lt [facility] [address] [place] [address], [place] * SCAN-ULTRASOUND REPORT (04/04/2025 12:00 AM CDT) Anatomical Region Laterality Modality Other us Scanner OTHER Final Result from Last 3 Months Insurance [facility] [employer] Advance Directives * Full Code (Latest Code Status on File) Date Activated Date Inactivated Comments 03/05/2017 9:17 PM 03/06/2017 2:00 PM * Full Code Date Activated Date Inactivated Comments 03/05/2017 11:34 AM 03/05/2017 9:15 PM Care Teams Plumber'S Helper Relationship Specialty Start Date End Date Latanya Hermosillo PA [address] [place] [address] PCP - General Physician Kindergarten Instructional Assistant 07/15/24 Cricket Gonzalez MD Surgery - Urology 03/04/17 Hilda York MD [address] [place] [address] Obstetrics and Gynecology 03/04/17 Mando Anglin MD [address] [facility] [address] [place], [place] [address] Consulting Physician Surgery - General 10/01/17 Pricila Borja RN [address] [facility] [address] [place], [place] [id number] Elementary School Registrar 10/01/17
--- NOTE | 2025-05-02 23:58 | ED.ABDPAIN ---
HPI - Abdominal Pain General Time Seen by Provider: 23:58 Date Seen: 05/02/25 Chief Complaint: Nausea/Vomiting Stated Complaint: nauseous, vomiting Time Seen by Provider: 05/02/25 23:58 Source: patient and EMS Mode of arrival: EMS History of Present Illness HPI narrative: Phuong is a 40 yo female who has a past medical history of depression, PTSD, cervical radiculopathy, chronic back pain who presents to the emergency department from home by EMS for evaluation of nausea & vomiting. Patient reports that she started to feel nauseated Thursday night. Patient reports that she woke up Thursday around 3:30 a.m. with nausea, vomiting, reports symptoms continued throughout the day. Patient reports multiple episodes of nausea, vomiting, and decreased oral intake, unable to eat or drink or keep anything down, also reports no urine output. Patient reports tried taking Pepto-Bismol however was unable to tolerated and had vomiting. Patient denies any fever, chills, chest pain, shortness of breath, denies any diarrhea, dysuria, hematuria. No other complaints. 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 Patient now c/o of headache, generalized weakness, fatigue. Patient reports some improvement of symptoms after receiving Zofran prior to arrival by EMS. Patient reports history of hysterectomy, appendectomy, cholecystectomy, section x3. Related Data Home Medications ?Medication ?Instructions ?Recorded ?Confirmed omeprazole 20 mg capsule,delayed 20 mg PO QDAY 03/14/23 05/03/25 release levothyroxine 100 mcg capsule 100 mcg PO QDAY 09/14/24 05/03/25 Allergies Allergy/AdvReac Type Severity Reaction Status Date / Time controls Allergy Mild Uncoded 05/03/25 00:07 Review of Systems Narrative Past medical history, past surgical history, medications, allergies, family history, and social history were reviewed with the patient. No additional pertinent items. A medically appropriate review of systems was performed with pertinent positives and negatives noted in HPI, all other systems negative. 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) Shingles ?B02.9 - Zoster without complications (ICD-10) Former smoker ?Z87.891 - Personal history of nicotine dependence (ICD-10) H/O renal calculi ?Z87.442 - Personal history of urinary calculi (ICD-10) Left knee pain ?M25.562 - Pain in left knee (ICD-10) Mixed stress and urge urinary incontinence ?N39.46 - Mixed incontinence (ICD-10) Posttraumatic stress disorder ?F43.10 - Post-traumatic stress disorder, unspecified (ICD-10) Adjustment disorder with mixed anxiety and depressed mood ?F43.23 - Adjustment disorder with mixed anxiety and depressed mood (ICD-10) Cervical radiculopathy ?M54.12 - Radiculopathy, cervical region (ICD-10) Chronic bilateral low back pain with right-sided sciatica ?M54.41 - Lumbago with sciatica, right side (ICD-10) ?G89.29 - Other chronic pain (ICD-10) Morbid obesity with BMI of 45.0-49.9, adult ?E66.01 - Morbid (severe) obesity due to excess calories (ICD-10) ?Z68.42 - Body mass index [BMI] 45.0-49.9, adult (ICD-10) Sebaceous cyst ?L72.3 - Sebaceous cyst (ICD-10) Controlled substance agreement signed ?Z79.899 - Other continuous churn buttermaker (current) drug therapy (ICD-10) Post hysterectomy menopause ?E89.40 - Asymptomatic postprocedural ovarian failure (ICD-10) ?Z90.710 - Acquired absence of both cervix and uterus (ICD-10) Depression ?F32.A - Depression, unspecified (ICD-10) Hypothyroidism ?E03.9 - Hypothyroidism, unspecified (ICD-10) Surgical History H/O section ?Z98.891 - History of uterine scar from previous surgery (ICD-10) History of cholecystectomy (~04/2004) ?Z90.49 - Acquired absence of other specified parts of digestive tract (ICD-10) Hx of appendectomy (~02/2005) ?Z90.49 - Acquired absence of other specified parts of digestive tract (ICD-10) H/O tubal ligation (12/27/07) ?Z98.51 - Tubal ligation status (ICD-10) History of bilateral carpal tunnel release (05/30/15) ?Z98.890 - Other specified postprocedural states (ICD-10) History of total abdominal hysterectomy (~2016) ?Z90.710 - Acquired absence of both cervix and uterus (ICD-10) S/P left rotator cuff repair (06/23/18) ?Z98.890 - Other specified postprocedural states (ICD-10) Social History Smoking Status: Never smoker Do you use any of these nicotine containing products: Vaping Products Second hand tobacco smoke exposure: Yes How often do you have a drink containing alcohol: never How often do you have six or more drinks on one occasion: Never AUDIT-C Alcohol total score: 0 Non-prescribed substance use: denies use service: No Exam Narrative: Exam Narrative: General: Afebrile, in distress HEENT: Normocephalic, atraumatic, conjunctiva normal. MMM Neck: non-tender, supple Cardio: regular rate. regular rhythm Resp: Normal work of breathing, no respiratory distress, lungs clear bilaterally, no wheezing, rhonchi, rales Chest/Back: no visual signs of trauma, no midline tenderness, no CVA tenderness Abdomen: soft, non distension, no tenderness, no peritoneal signs Neuro: alert and fully oriented. CN II-XII grossly intact. Grossly normal strength and sensation in all extremities. MSK: no deformities. Normal range of motion Integumentary/Skin: no rash visualized, normal color Psych: normal affect, normal behavior Const: Vital Signs, click to edit/add: Vital Signs - 24 hr 05/03/25 00:00 05/03/25 02:20 Temperature 98.8 F 98.8 F Pulse Rate [Right Pulse Oximeter] 68 Respiratory Rate 18 Blood Pressure [Ri ght Upper Arm] 119/81 Pulse Oximetry 95 Oxygen Delivery Me thod Room Air Course Vital Signs Vital signs: Initial Vital Signs Temperature 98.8 F 05/03/25 00:00 Temperature Source Temporal Artery Scan 05/03/25 00:00 Pulse Rate 68 05/03/25 00:00 Respiratory Rate 18 05/03/25 00:00 Blood Pressure 119/81 05/03/25 00:00 Blood Pressure Mean 93 05/03/25 00:00 Blood Pressure Position Supine 05/03/25 00:00 Pulse Oximetry 95 05/03/25 00:00 Oxygen Delivery Method Room Air 05/03/25 00:00 Vital Signs Temperature 98.8 F 05/03/25 00:00 Pulse Rate 68 05/03/25 00:00 Respiratory Rate 18 05/03/25 00:00 Blood Pressure 119/81 05/03/25 00:00 Pulse Oximetry 95 05/03/25 00:00 Oxygen Delivery Method Room Air 05/03/25 00:00 Temperature 98.8 F 05/03/25 02:20 Pulse Rate 68 05/03/25 00:00 Respiratory Rate 18 05/03/25 00:00 Blood Pressure 119/81 05/03/25 00:00 Pulse Oximetry 95 05/03/25 00:00 Oxygen Delivery Method Room Air 05/03/25 00:00 Medications Administered Medications: Generic Name Dose Route Start Last Admin Trade Name Freq PRN Reason Stop Dose Admin Diphenhydramine HCl 12.5 mg 05/03/25 00:35 05/03/25 01:14 Diphenhydramine 50 Mg/Ml Inj IVP 05/03/25 00:36 12.5 mg ONCE ONE Administration Famotidine 20 mg 05/03/25 00:35 05/03/25 01:14 Famotidine 10 Mg/Ml Inj IVP 05/03/25 00:36 20 mg ONCE ONE Administration Sodium Chloride 1,000 mls @ 1,000 mls/hr 05/03/25 00:45 05/03/25 02:20 0.9 % Sodium Chloride 1000 Ml IV 05/03/25 01:44 Infused .Q1H TANYA Infusion Ketorolac Tromethamine 15 mg 05/03/25 00:35 05/03/25 01:15 Ketorolac 15 Mg/Ml Inj IVP 05/03/25 00:36 15 mg ONCE ONE Administration Metoclopramide HCl 10 mg 05/03/25 00:35 05/03/25 01:15 Metoclopramide Hcl 5 Mg/Ml Inj IVP 05/03/25 00:36 10 mg ONCE ONE Administration MDM - Abdominal Pain MDM Narrative Medical decision making narrative: Phuong is a 40 yo female who has a past medical history of depression, PTSD, cervical radiculopathy, chronic back pain who presents to the emergency department from home by EMS for evaluation of nausea & vomiting. Upon arrival patient is nontoxic appearing, afebrile, in distress. Patient hemodynamically stable vital signs within normal limits. Differential diagnosis includes but is not limited to gastritis versus gastroenteritis versus colitis versus pancreatitis versus viral illness among others. Patient with history of hysterectomy, appendectomy, cholecystectomy. Upon arrival patient was treated with IV Pepcid, Reglan, Benadryl, Toradol, 1 L IV fluid bolus. Comprehensive labs performed. Comprehensive labs remarkable for no leukocytosis white blood cell count 6.7, hemoglobin 13.3, no acute metabolic or electrolyte abnormality, creatinine 0.8, no transaminitis, normal lipase. Negative influenza/COVID/RSV. On re-evaluation patient resting comfortably, sleeping, no distress. I discussed results with patient. At this time plan for discharge home with continued supportive care, will discharge with a prescription for Zofran as needed for nausea. Encourage oral hydration. Encouraged close outpatient follow-up and strict return precautions discussed. Patient understands and agrees with the plan. Medical Records Attestation: I reviewed the patient's medical records. Lab Data Attestation: I reviewed the patient's lab results. Labs: Lab Results 05/03/25 Range/Units 00:15 WBC 6.79 (4.50-11.00) K/uL RBC 4.44 (4.00-5.20) m/uL Hgb 13.3 (12.0-16.0) gm/dL Hct 40.3 (33.0-51.0) % MCV 91 (80-100) fL MCH 30 (26-34) pg MCHC 33 (32-36) gm/dL RDW Coeff of Devika 13.0 (11.5-15.5) % Plt Count 186 (140-440) K/uL Neut % (Auto) 67.2 (42.0-72.0) % Lymph % (Auto) 24.9 (20-44) % Sampson % (Auto) 6.5 (0.0-11.0) % Eos % (Auto) 0.7 (0.0-7.0) % Baso % (Auto) 0.3 (0.0-3.0) % Neut # (Auto) 4.56 (1.7-7.0) K/uL Lymph # (Auto) 1.69 (0.90-2.90) K/uL Sampson # (Auto) 0.40 (0.00-0.90) K/UL Eos # (Auto) 0.05 (0.00-0.50) K/uL Baso # (Auto) 0.02 (0.00-0.30) K/uL Abs Immat Gran (auto) 0.03 (0.00-0.30) K/uL Imm/Tot Granulo (auto) 0.4 % Sodium 139 (135-149) mmol/L Potassium 3.7 (3.6-5.1) mmol/L Chloride 106 (96-114) mmol/L Carbon Dioxide 27 (20-32) mmol/L Anion Gap 6 L (7-15) mEq/L BUN 13 (5-24) mg/dL Creatinine 0.8 (0.5-1.5) mg/dL Estimated Creat Clear 75.78 Estimated GFR 94 ml/min Glucose 94 (60-115) mg/dL Calcium 9.1 (8.4-10.6) mg/dL Total Bilirubin 1.7 H (0.1-1.5) mg/dL AST 24 (12-35) U/L ALT 18 (4-35) U/L Alkaline Phosphatase 47 (40-150) U/L Total Protein 7.1 (6.0-8.3) g/dL Albumin 3.9 (3.3-5.0) g/dL Lipase 41 (23-300) U/L SARS-CoV-2 (PCR) Negative SARS-CoV-2 (Negative) Influenza Type A (PCR) Negative PCR FLU A (Negative) Influenza Type B (PCR) Negative PCR FLU B (Negative) RSV (PCR) Negative PCR RSV (Negative) Discharge Plan Discharge Clinical Impression: Nausea & vomiting Patient Disposition: Home, Self-Care Condition: Improved Instructions: Acute Nausea and Vomiting (ED) Additional Instructions: Please follow-up with primary care provider in the next 3-5 days for further evaluation and follow-up. Please call to schedule appointment. Please rest, drink plenty of fluids. Please start with a bland/soft diet and slowly advance as tolerated over the next 24-48 hours. Please take Zofran as needed for nausea. Return to the emergency department if you develop persistent high fever, severe abdominal pain, persistent vomiting, worsening symptoms. It was a pleasure taking care of you today. We hope you feel better soon. Prescriptions: No Action omeprazole 20 mg capsule,delayed release(DR/EC) 20 mg PO QDAY levothyroxine 100 mcg capsule 100 mcg PO QDAY Follow Up/Referrals: GLORIA KWAN DO [Primary Care Provider, Family Practice] Stand Alone Forms: [facility] Info Instructions
[2025-05-03] VITALS: BP 119/81; PULSE 68; RESP 18; TEMP 37.1; O2SAT 95; BMI 46.1
[2025-05-03 00:27] LABS: Hematocrit* 40.3 % (33.0-51.0); Hemoglobin* 13.3 gm/dL (12.0-16.0); Immature Granulocytes Abs Auto 0.03 K/uL (0.00-0.30); Immature Granulocytes Pct Auto 0.4 %; Lymphocytes Absolute Auto 1.69 K/uL (0.90-2.90); Mean Corpuscular HGB Conc 33 gm/dL (32-36); Mean Corpuscular Hemoglobin 30 pg (26-34); Mean Corpuscular Volume 91 fL (80-100); RDW Coefficient of Variation % 13.0 % (11.5-15.5); Red Blood Count* 4.44 m/uL (4.00-5.20); White Blood Count* 6.79 K/uL (4.50-11.00)
[2025-05-03 00:30] LABS: Slide Review Reflex No
--- OUTSIDE RECORDS SUMMARY | 2025-05-03 00:49 | XMS_ITS | Clinical Summary ---
Author Organization [facility] Address [address], [place] [address] Care Team Providers Care Rat Poisoner Name Role Phone Unassigned, Provider Primary Care Provider Unava ilable Source Comments You are receiving this document as you are listed as the primary care provider,follow-up provider, or the patient has been referred to you for consultation.This is in compliance with the Medicare and[facility] EHR Incentive Program,which states Providers who transition their patient to another setting of careor provider of care or refers their patient to another provider of care shouldprovide summary care record for each transition of care or referral. [employer] Allergies No known active allergies Medications venlafaxine [...] age to complete this topic Care Teams Rat Poisoner Relationship Specialty Start Date End Date Unassigned, Provider [address] [place] [id number] PCP - General 04/01/00
--- OUTSIDE RECORDS SUMMARY | 2025-05-03 00:49 | XMS_ITS | Clinical Summary ---
Author Organization [employer] [facility] [employer] Address [address] [place] [address] Care Team Providers Care Eeg Tech Name Role Phone Cricket Gonzalez MD Unavailable [phone] Hilda York MD Unavailable [phone] Madno Anglin MD Unavailable [phone] Pricila Borja RN Unavailable [phone] Latanya Hermosillo Primary Care Provider [phone] Allergies Active Allergy Reactions Criticality Noted Date [...] / Est. Pgm Completion: March, Procedure Location: [place] Co-morbidities: To be determined Orders: Labs Yes [...] agreement signed 06/03/2018 Overview (06/03/2018): Jeyson TORRES [facility] Andreia Fay, KEYMODULE ASSEMBLY SUPERVISOR 06/03/2018 11:32 AM Cervical radiculopathy 07/20/2017 Mixed [...] Description 04/10/2025 11:10 AM CDT Office Visit [facility] [address] [place] [address] Latanya Hermosillo PA Screening (Wants to be [...] on file Legal Sex Female 5:26 AM LOADING AND UNLOADING SUPERVISOR Gender Identity Not on file Sexual Orientation [...] 36.7 C (98 F) 08/29/2022 11:06 AM LOADING AND UNLOADING SUPERVISOR Respiratory Rate 16 08/02/2024 3:38 PM LOADING AND UNLOADING SUPERVISOR Oxygen Saturation 96% 04/10/2025 11:18 AM CDT Inhaled Oxygen Concentration - - Weight 121.6 kg (268 lb) 04/10/2025 11:18 AM CDT Height 160.7 cm (5' 3.25) 08/02/2024 3:38 PM CS T Body Mass Index 47.1 08/02/2024 3:38 PM LOADING AND UNLOADING SUPERVISOR Plan of Treatment Health Maintenance Due Date [...] this topic Medical Devices Implanted Type Area Ged Teacher Device Identifier Shelf Expiration Date Model / Serial / Lot Stent Uret [id number] [facility] [id number] Implanted:Qty: 1 on 03/05/2017 by Cricket Gonzalez MD at [facility] Right: [employer] Jessica 06/24/2019 [id number] / / [id number] Procedures Procedure Name Priority Date/Time Associated Diagnosis [...] TREPONEMA PALLIDUM (04/10/2025 12:23 PM CDT) Pathologist [facility] TREPONEMA PALLIDUM Non-Reacti ve Non-Reacti ve 04/10/2025 11:36 PM CDT [facility] Blood BLOOD SPECIMEN / Unknown [facility] / Unknown 04/10/2025 12:23 PM CDT 04/10/2025 12:23 PM CDT us Latanya TORRES SEND OUTS [facility] [address] [place] [address], * (ABNORMAL) TSH (04/10/2025 12:23 PM CDT) TSH 13.17(H) mIU/L 04/11/2025 6:40 AM CDT [facility] Comment: Reference Range > or = 20 Years 0.40-4.50 Ranges First trimester 0.26-2.66 Second trimester 0.55-2.73 Third trimester 0.43-2.91 Blood BLOOD SPECIMEN / Unknown [facility] / Unknown 04/10/2025 12:23 PM CDT 04/10/2025 12:23 PM CDT Latanya TORRES CHEMISTRY Final Resu lt Performing Organization Address [facility] de Phone Number [facility] [address] [address], * ANTI HCV (04/10/2025 12:23 PM CDT) Pathologist [facility] HEPATITIS C ANTIBODY NON-REACT HAMZAH NON-REACT HAMZAH 04/11/2025 1:31 PM CDT [facility] Comment: HCV antibody was non-reactive. There is no laboratory evidence of HCV infection. In most cases, no further action is required. However, if recent HCV exposure is suspected, a test for HCV RNA (test code 35736) is suggested. For additional information please refer to http://education.Vocalocity/faq/IVE46q5 (This link is being provided for informational/ educational purposes only.) Blood BLOOD SPECIMEN / Unknown [facility] / Unknown 04/10/2025 12:23 PM CDT 04/10/2025 12:23 PM CDT Latanya TORRES SEND OUTS Final Resu lt Performing Organization Address [facility] de Phone Number [facility] [address] [address], * ANTI HIV 1/2 (04/10/2025 12:23 PM CDT) Pathologist [facility] HIV FINAL INTERPRETATOIN HIV NEGATIVE 04/11/2025 1:27 PM CDT [facility] Comment: HIV-1 antigen and HIV-1/HIV-2 antibodies were not detected. There is no laboratory evidence of HIV infection. HIV AG/AB, 4TH GEN NON-REACTIV E NON-REAC TIVE 04/11/2025 1:27 PM CDT [facility] Blood BLOOD SPECIMEN / Unknown [facility] / Unknown 04/10/2025 12:23 PM CDT 04/10/2025 12:23 PM CDT Latanya TORRES SEND OUTS Final Resu lt [facility] [address] [address], [place] [phone] * (ABNORMAL) TRICHOMONAS, TANK, AND BACTERIAL VAGINOSIS BY MARYAN (04/10/2025 11:55 AM CDT) TANK SPECIES Negative Negative 12:17 PM CDT [facility] TANK GLABRATA Negative Negative 04/11/2025 12:17 PM CDT [facility] TRICHOMONAS VVA Negative Negative 12:17 PM CDT [facility] BACTERIAL VAGINOSIS Positive(A) Negative 04/11/2025 12:17 PM CDT [facility] Other VAGINAL SWAB / Unknown Non-Blood / Unknown 04/10/2025 11:55 AM CDT 04/10/2025 1:31 PM CDT Latanya TORRES MICROBIOLOGY Final Resu lt [facility] [address] [place] [address], [place] * GC & CHLAMYDIA DNA PCR [[id number]] (04/10/2025 11:55 AM CDT) CHLAMYDIA PROBE Negative 12:39 PM CDT [facility] N GONORRHOEAE PROBE Negative 04/11/2025 12:39 PM CDT [facility] Other VAGINAL SWAB / Unknown Non-Blood / Unknown 04/10/2025 11:55 AM CDT 04/10/2025 1:31 PM CDT us Latanya TORRES MICROBIOLOGY Final Resu lt [facility] [address] [place] [address], [place] * SCAN-ULTRASOUND REPORT (04/04/2025 12:00 AM CDT) Anatomical Region Laterality Modality Other us Scanner OTHER Final Result from Last 3 Months Insurance [facility] THIRD LIBERTARIAN PAYER Advance Directives * Full Code (Latest Code Status on File) Date Activated Date Inactivated Comments 03/05/2017 9:17 PM 03/06/2017 2:00 PM * Full Code Date Activated Date Inactivated Comments 03/05/2017 11:34 AM 03/05/2017 9:15 PM Care Teams Eeg Tech Relationship Specialty Start Date End Date Latanya Hermosillo PA [address] [place] [address] PCP - General Physician [employer] B[employer] 07/15/24 Cricket Gonzalez MD Surgery - Urology 03/04/17 Hilda York MD [address] [place] [address] Obstetrics and Gynecology 03/04/17 Mando Anglin MD [address] [facility] [address] [place], [place] [address] Consulting Physician Surgery - General 10/01/17 Pricila Borja RN [address] [facility] [address] [place], [place] [id number] Flight Communications Operator 10/01/17
--- OUTSIDE RECORDS SUMMARY | 2025-05-03 00:49 | XMS_ITS | Clinical Summary ---
Author Organization [employer] Address [address] [place] [address]. [place] [address] Care Team Providers Care Tray Casting Machine Operator Name Role Phone Joce Justin MD Primary Care Provider [phone] Allergies Active Allergy Reactions Criticality Noted Date [...] of Treatment Not on file Care Teams Tray Casting Machine Operator Relationship Specialty Start Date End Date Joce Justin MD PCP - General Family Practice 09/08/17
[2025-05-03 00:52] LABS: Chloride* 106 mmol/L (96-114)
[2025-05-03 00:53] LABS: Albumin* 3.9 g/dL (3.3-5.0); Potassium* 3.7 mmol/L (3.6-5.1); Sodium* 139 mmol/L (135-149)
[2025-05-03 00:55] LABS: Blood Urea Nitrogen* 13 mg/dL (5-24); Creatinine* 0.8 mg/dL (0.5-1.5); Est. Creatinine Clearance* 75.78; Estimated Glomerular Filt Rate 94 ml/min
[2025-05-03 00:56] LABS: Alanine Aminotransferase* 18 U/L (4-35); Alkaline Phosphatase* 47 U/L (40-150); Anion Gap 6 mEq/L (7-15); Aspartate Amino Transferase* 24 U/L (12-35); Bilirubin Total* 1.7 mg/dL (0.1-1.5); Calcium* 9.1 mg/dL (8.4-10.6); Carbon Dioxide* 27 mmol/L (20-32); Glucose* 94 mg/dL (60-115); Total Protein* 7.1 g/dL (6.0-8.3)
[2025-05-03 01:04] LABS: PCR FLU A Negative PCR FLU A (Negative); PCR FLU B Negative PCR FLU B (Negative); PCR RSV Negative PCR RSV (Negative); SARS PCR* Negative SARS-CoV-2 (Negative)
[2025-05-03] MEDS: FAMOTIDINE 10 MG/ML inj 20 MG IVP (01:14)
[2025-05-03] MEDS: METOCLOPRAMIDE HCL 5 MG/ML INJ 10 MG IVP (01:15)
[2025-05-03 02:20] VITALS: TEMP 37.1
== END 2025-05-03 02:47 | disposition home or self-care (01) ==
PROVIDERS: Emergency Provider Emergency Medicine; PCP Student in an Organized Health Care Education/Training Program
DX: R11.2 Nausea with vomiting, unspecified (principal)
CPT/HCPCS: 36415; 80053; 83690; 85025; 87631; 96374; 96375; 99283; 99284; 99285; J1200; J1308; J1885; J2765; J7030